=== PATIENT | male | born 1960 | race Caucasian/White ===

== ENCOUNTER 2019-05-19 10:27 | Emergency (ER) | payer BC ==
--- NOTE | 2019-05-19 11:21 | CR ---
Left elbow: 4 views left elbow were obtained. Comparison: No previous study. Soft tissue swelling is identified. No joint effusion is identified. Joint spaces are preserved. No acute fracture, dislocation or other bony abnormality is identified. Impression: 1. Soft tissue swelling. 2. No acute bony abnormality is identified on left elbow study. Diagnostic code #2 Study was dictated in MDT
--- NOTE | 2019-05-19 12:12 | EDM.PDOC ---
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 Feels warm to touch. He admits that he might of fallen on it about a week ago landing on his elbow and his left knee however. Or the slip and fall that occurred. Patient is left-hand dominant. Over the last day and a half however started to get more red tight and swollen. No numbness tingling. Did not have any neck pain or radicular pain. No strength deficit. His elbow range of motion is normal. Denies any wrist fingers or shoulder pain. No fevers chills or sweats no coughing or cold symptoms no muscle aches or pains. No red streaking, no open wounds.) Left Lower Arm Pain Score (Numeric/FACES): 2 - Related Data Allergies Allergy/AdvReac Type Severity Reaction Status Date / Time No Known Allergies Allergy Verified 05/19/19 10:39 MDT Home Meds: Home Meds cephALEXin [Keflex] 500 mg PO Q8H #30 cap 05/19/19 [Rx] Past Medical History Cardiovascular History: Reports: High Cholesterol, Hypertension Respiratory History: Reports: COPD Social & Family History - Tobacco Use Smoking Status *Q: Current Every Day Smoker Years of Tobacco use: 25 Packs/Tins Daily: 1 - Alcohol Use Days Per Week of Alcohol Use: 2 Number of Drinks Per Day: 7 Total Drinks Per Week: 14 - Recreational Drug Use Recreational Drug Use: No Review of Systems - Review of Systems Review Of Systems: See Below Constitutional: Denies: Chills, Diaphoresis, Fever Nose: Reports: No Symptoms Mouth/Throat: Reports: No Symptoms Respiratory: Reports: Cough. Denies: Shortness of Breath Cardiovascular: Reports: No Symptoms GI/Abdominal: Reports: No Symptoms. Denies: Nausea, Vomiting Musculoskeletal: Reports: Joint Swelling. Denies: Shoulder Pain, Arm Pain, Hand Pain, Joint Pain Skin: Reports: Rash, Erythema Neurological: Denies: Dizziness, Paresthesia, Tremors, Weakness Psychiatric: Reports: No Symptoms ED EXAM, GENERAL - Physical Exam Exam: See Below Exam Limited By: No Limitations General Appearance: Alert, WD/WN, No Apparent Distress. No: Mild Distress Respiratory/Chest: No Respiratory Distress, Lungs Clear Cardiovascular: Normal Peripheral Pulses, Regular Rate, Rhythm, No Murmur Peripheral Pulses: 2+: Radial (L), Radial (R) GI/Abdominal: Normal Bowel Sounds Back Exam: Normal Inspection Extremities: Normal Capillary Refill, Joint Swelling, Arm Pain, Increased Warmth (Upper extremity from the hand dorsal aspect up to the mid humerus is redness and warmth. There is no induration however there is no open wounds. 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 No point pinpoint tenderness noted. No bony tenderness to anatomical snuffbox carpal and range of motion of the wrist and elbow are somewhat diminished secondary to more swelling than any pain as he denies any pain. No axillary adenopathy no red streaking, shoulder within normal limits neck is unremarkable for any pain or range of motion deficit.). No: Slow Capillary Refill Course - Vital Signs Last Recorded V/S: Last Vital Signs Temp 98.2 F 05/19/19 10:34 MDT Pulse 84 05/19/19 10:34 MDT Resp 16 05/19/19 10:34 MDT BP 123/89 05/19/19 10:34 MDT Pulse Ox 95 05/19/19 10:34 MDT - Orders/Labs/Meds Orders: Active Orders 24 hr Category Date Time Status DME for Discharge [COMM] Routine Oth 05/19/19 12:17 Ordered Labs: Laboratory Tests 05/19/19 05/19/19 Range/Units 11:13 MDT 11:13 MDT WBC 8.80 (4.23-9.07) K/mm3 RBC 4.92 (4.63-6.08) M/mm3 Hgb 15.1 (13.7-17.5) gm/dl Hct 45.1 (40.1-51.0) % MCV 91.7 (79.0-92.2) fl MCH 30.7 (25.7-32.2) pg MCHC 33.5 (32.2-35.5) g/dl RDW Std Deviation 42.9 (35.1-43.9) fL Plt Count 246 (163-337) K/mm3 MPV 9.1 L (9.4-12.3) fl Neut % (Auto) 59.4 (34.0-67.9) % Lymph % (Auto) 26.6 (21.8-53.1) % [place] % (Auto) 10.5 (5.3-12.2) % Eos % (Auto) 2.8 (0.8-7.0) Baso % (Auto) 0.6 (0.1-1.2) % Neut # (Auto) 5.23 (1.78-5.38) K/mm3 Lymph # (Auto) 2.34 (1.32-3.57) K/mm3 [place] # (Auto) 0.92 H (0.30-0.82) K/mm3 Eos # (Auto) 0.25 (0.04-0.54) K/mm3 Baso # (Auto) 0.05 (0.01-0.08) K/mm3 Sodium 140 (136-145) mEq/L Potassium 4.0 (3.5-5.1) mEq/L Chloride 100 (98-107) mEq/L Carbon Dioxide 29 (21-32) mEq/L Anion Gap 15.0 (5-15) BUN 9 (7-18) mg/dL Creatinine 0.6 L (0.7-1.3) mg/dL Est Cr Clr Drug Dosing 154.13 mL/min Estimated GFR (MDRD) > 60 (>60) mL/min BUN/Creatinine Ratio 15.0 (14-18) Glucose 80 (74-106) mg/dL Calcium 9.4 (8.5-10.1) mg/dL C-Reactive Protein 3.3 H* (<1.0) mg/dL - Radiology Interpretation Free Text/Narrative:: X-ray of the left elbow show some mild soft tissue swelling, no fracture dislocation, fat pad sign is negative. - Re-Assessments/Exams Free Text/Narrative Re-Assessment/Exam: 05/19/19 12:11 Preliminary ultrasound left upper extremity negative for DVT. White count is normal, CRP minimally elevated, creatinine is normal. Initially suspect could be fracture rule out DVT, cellulitis, lymphoma, and thoracic outlet, subclavian steal is unlikely. With lab results and x-ray along with negative ultrasound will treat with antibiotics, Keflex 500 mg 3 times a day for 7 days, warm moist heat elevate rest, follow-up and return precautions given. Departure - Departure Time of Disposition: 16:05 Disposition: Home, Self-Care 01 Condition: Good Clinical Impression: Cellulitis of arm, left - Discharge Information Prescriptions: cephALEXin [Keflex] 500 mg PO Q8H #30 cap Instructions: Cellulitis, Adult Referrals: Too Burkett MD [Primary Care Provider] - Forms: ED Department Discharge Additional Instructions: Rest, elevate, warm moist heat, take antibiotics as directed. Monitor for any increasing warmth redness swelling, fevers, myalgias. Follow-up with your primary care in the next 2 days for recheck evaluation to make sure it is improving. Return to emergency department however for any increasing swelling redness pain fevers red streaking, worse. Sepsis Event Note - Evaluation Sepsis Screening Result: No Definite Risk - Focused Exam Vital Signs: Vital Signs Temp Pulse Resp BP Pulse Ox 05/19/19 10:34 MDT 98.2 F 84 16 123/89 95 Date Exam was Performed: 05/19/19 Time Exam was Performed: 17:05
--- NOTE | 2019-05-19 12:23 | US ---
Left upper extremity venous ultrasound: Duplex and color Doppler evaluation was obtained of the left internal jugular, left subclavian, left axillary, left brachial, left basilic, left cephalic, left radial and left ulnar veins. Findings: Normal compression, phasic flow and augmentation is seen. Subcutaneous edema is noted within the forearm. Impression: 1. Subcutaneous edema as noted above. 2. No venous thrombosis is seen within the left upper extremity. Diagnostic code #2 Study was dictated in MDT
== END 2019-05-19 12:26 | disposition home or self-care (01) ==
LOC: JD.ED 10:27
DX: L03.114 Cellulitis of left upper limb (principal); J44.9 Chronic obstructive pulmonary disease, unspecified; I10 Essential (primary) hypertension; F17.210 Nicotine dependence, cigarettes, uncomplicated
CPT/HCPCS: 36415; 73080-26-LT; 73080-LT; 80048; 85025; 86140; 93971-26-LT; 93971-LT; 99283; 99284-25

== ENCOUNTER 2020-02-10 08:49 | Inpatient (IN) | payer BC ==
[2020-02-10] MEDS ORDERED: Sodium Chloride 0.9% 10 ML Syringe FLUSH PRN (09:37)
--- NOTE | 2020-02-10 10:04 | EDM.PDOC ---
ED HPI GENERAL MEDICAL PROBLEM - General Chief Complaint: Respiratory Problem Stated Complaint: COUGH/FATIGUE Time Seen by Provider: 02/10/20 09:09 Source of Information: Reports: Patient History Limitations: Reports: No Limitations - History of Present Illness INITIAL COMMENTS - FREE TEXT/NARRATIVE: 59-year-old male presents to the emergency department with complaints of incre ased shortness of breath and chest congestion. Patient states this has been ongoing for the past couple of weeks however today he feels more short of breath. States his primary care provider Kari Mitchell, recently started him on a diuretic which he believes is Lasix 20 mg daily. He states he does not note any improvement since being started on that over the course of the last couple of weeks. He also states he has been treated on a couple of rounds of antibiotics for pneumonia. Denies increased cough states he feels like he is unable to get the mucus out. States that over the course of the last couple of weeks he has had an increased need for oxygen. Prior to this he only wore oxygen at nighttime however he is now wearing it 24/7 at 5 L per nasal cannula. He denies fever or chills. Also denies any swelling to his feet or ankles. Distant denies orthopnea. 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 - Related Data Allergies Allergy/AdvReac Type Severity Reaction Status Date / Time No Known Allergies Allergy Verified 02/10/20 09:09 Home Meds: Home Meds Albuterol Sulfate [Albuterol Sulfate Hfa] 2 inh IH Q4H PRN 02/10/20 [History] Budesonide/Formoterol Fumarate [Symbicort 160-4.5 Mcg Inhaler] 2 inh IH BID 02/10/20 [History] Fluticasone Furoate [Arnuity Ellipta] 2 inh ROSIE DAILY 02/10/20 [History] Furosemide 20 mg PO DAILY 02/10/20 [History] Ipratropium/Albuterol Sulfate [Iprat-Albut 0.5-3(2.5) mg/3 ml] 3 ml IH Q6HR 02/10/20 [History] Omeprazole 40 mg PO DAILY 02/10/20 [History] Quinapril [Accupril] 10 mg PO DAILY 02/10/20 [History] amLODIPine [Norvasc] 5 mg PO DAILY 02/10/20 [History] atorvaSTATin [Lipitor] 10 mg PO BEDTIME 02/10/20 [History] predniSONE [Prednisone] 10 mg PO BID 02/10/20 [History] Past Medical History Cardiovascular History: Reports: High Cholesterol, Hypertension Respiratory History: Reports: COPD Social & Family History - Tobacco Use Tobacco Use Status *Q: Former Tobacco User Years of Tobacco use: 40 Packs/Tins Daily: 1 Used Tobacco, but Quit: Yes Month/Year Tobacco Last Used: August 2019 - Caffeine Use Caffeine Use: Reports: Coffee - Recreational Drug Use Recreational Drug Use: No ED ROS GENERAL - Review of Systems Review Of Systems: See Below Constitutional: Reports: No Symptoms. Denies: Fever, Chills, Diaphoresis HEENT: Reports: No Symptoms Respiratory: Reports: Shortness of Breath, Cough. Denies: Wheezing, Pleuritic Chest Pain, Sputum Cardiovascular: Reports: Dyspnea on Exertion. Denies: Chest Pain, Edema, Palpitations Endocrine: Reports: No Symptoms GI/Abdominal: Reports: No Symptoms. Denies: Abdominal Pain, Nausea, Vomiting Skin: Reports: No Symptoms Neurological: Reports: No Symptoms Psychiatric: Reports: No Symptoms Hematologic/Lymphatic: Reports: No Symptoms Immunologic: Reports: No Symptoms ED EXAM, GENERAL - Physical Exam Exam: See Below Exam Limited By: No Limitations General Appearance: Alert, WD/WN, No Apparent Distress Eye Exam: Bilateral Eye: PERRL Ears: Hearing Grossly Normal Nose: Normal Inspection Throat/Mouth: Normal Voice, No Airway Compromise Head: Atraumatic, Normocephalic Neck: Normal Inspection, Supple, Non-Tender, Full Range of Motion Respiratory/Chest: No Respiratory Distress, Chest Non-Tender, Decreased Breath Sounds, Crackles (Left upper lobe posteriorly). No: Lungs Clear, Normal Breath Sounds, No Accessory Muscle Use Cardiovascular: Normal Peripheral Pulses, Regular Rate, Rhythm, No Edema, No Murmur Peripheral Pulses: 2+: Radial (L), Radial (R), Dorsalis Pedis (L), Dorsalis Pedis (R) GI/Abdominal: Normal Bowel Sounds, Soft, Non-Tender, No Distention (Male) Exam: Deferred Rectal (Males) Exam: Deferred Back Exam: Normal Inspection, Full Range of Motion Extremities: Normal Inspection, Normal Range of Motion, Non-Tender, No Pedal Edema, Normal Capillary Refill Neurological: Alert, Oriented, Normal Cognition Psychiatric: Normal Affect, Normal Mood Skin Exam: Warm, Dry, Intact, Normal Color, No Rash Lymphatic: No Adenopathy #1 Interpretation EKG Date: 02/10/20 Time: 09:18 Rhythm: NSR Rate (Beats/Min): 99 [place]: Normal P-Wave: Present QRS: Normal ST-T: Normal Comparison: NA - No Prior EKG EKG Interpretation Comments: Per Dr. Corrigan interpretation: Sinus tachycardia, probable left atrial enlargement, minimal ST elevation, lateral leads, baseline wander in lead (s) V1, V2 Course - Vital Signs Text/Narrative:: I have ordered a CBC, CMP, magnesium, C-reactive protein, proBNP, EKG, and a chest x-ray on this patient. Last Recorded V/S: Last Vital Signs Temp 98.0 F 02/10/20 09:10 Pulse 120 H 02/10/20 13:00 Resp 18 02/10/20 13:00 BP 117/85 02/10/20 13:00 Pulse Ox 94 L 02/10/20 13:00 - Orders/Labs/Meds Orders: Active Orders 24 hr Category Date Time Status EKG 12 Lead [EKG Documentation Completion] [RC] ROUTINE Care 02/10/20 09:18 Active Chest 1V Frontal [CR] Stat Exams 02/10/20 09:37 Taken Sodium Chloride 0.9% [Saline Flush] Med 02/10/20 09:37 Active 10 ml FLUSH ASDIRECTED PRN Saline Lock Insert [OM.PC] Stat Oth 02/10/20 09:37 Ordered Medication Orders Sodium Chloride (Saline Flush) 10 ml FLUSH ASDIRECTED PRN PRN Reason: Keep Vein Open Last Admin: 02/10/20 09:46 Dose: 10 ml Documented by: CHASITY Labs: Laboratory Tests 02/10/20 02/10/20 02/10/20 Range/Units 09:15 09:15 09:15 WBC 10.16 H (4.23-9.07) K/mm3 RBC 5.13 (4.63-6.08) M/mm3 Hgb 15.2 (13.7-17.5) gm/dl Hct 48.3 (40.1-51.0) % MCV 94.2 H (79.0-92.2) fl MCH 29.6 (25.7-32.2) pg MCHC 31.5 L (32.2-35.5) g/dl RDW Std Deviation 43.9 (35.1-43.9) fL Plt Count 219 (163-337) K/mm3 MPV 9.5 (9.4-12.3) fl Neut % (Auto) 80.2 H (34.0-67.9) % Lymph % (Auto) 10.5 L (21.8-53.1) % [place] % (Auto) 7.8 (5.3-12.2) % Eos % (Auto) 1.0 (0.8-7.0) Baso % (Auto) 0.2 (0.1-1.2) % Neut # (Auto) 8.15 H (1.78-5.38) K/mm3 Lymph # (Auto) 1.07 L (1.32-3.57) K/mm3 [place] # (Auto) 0.79 (0.30-0.82) K/mm3 Eos # (Auto) 0.10 (0.04-0.54) K/mm3 Baso # (Auto) 0.02 (0.01-0.08) K/mm3 Manual Slide Review Normal smear D-Dimer, Quantitative (0.19-0.50) mg/L Puncture Site ABG pH (7.35-7.45) ABG pCO2 (35.0-45.0) mmHg ABG pO2 (80.0-100.0) mmHg ABG HCO3 (22.0-26.0) meq/L ABG O2 Saturation (96.0-97.0) % ABG Base Excess (-2-2.0) Cameron Test O2 Delivery Device Oxygen Flow Rate FiO2 (21.00-100.00) % Sodium 133 L (136-145) mEq/L Potassium 3.9 (3.5-5.1) mEq/L Chloride 91 L (98-107) mEq/L Carbon Dioxide 38 H (21-32) mEq/L Anion Gap 7.9 (5-15) BUN 8 (7-18) mg/dL Creatinine 0.7 (0.7-1.3) mg/dL Est Cr Clr Drug Dosing 132.11 mL/min Estimated GFR (MDRD) > 60 (>60) mL/min BUN/Creatinine Ratio 11.4 L (14-18) Glucose 124 H (74-106) mg/dL Calcium 9.0 (8.5-10.1) mg/dL Magnesium 1.9 (1.8-2.4) mg/dl Total Bilirubin 0.5 (0.2-1.0) mg/dL AST 23 (15-37) U/L ALT 23 (16-63) U/L Alkaline Phosphatase 70 (46-116) U/L Troponin I < 0.017 (0.00-0.056) ng/mL C-Reactive Protein < 0.2 (<1.0) mg/dL NT-Pro-B Natriuret Pep 73 (0-125) pg/mL Total Protein 7.1 (6.4-8.2) g/dl Albumin 3.7 (3.4-5.0) g/dl Globulin 3.4 gm/dL Albumin/Globulin Ratio 1.1 (1-2) SARS-CoV-2 RNA (SHANNEN) (NEGATIVE) 02/10/20 02/10/20 02/10/20 Range/Units 09:15 10:32 12:15 WBC (4.23-9.07) K/mm3 RBC (4.63-6.08) M/mm3 Hgb (13.7-17.5) gm/dl Hct (40.1-51.0) % MCV (79.0-92.2) fl MCH (25.7-32.2) pg MCHC (32.2-35.5) g/dl RDW Std Deviation (35.1-43.9) fL Plt Count (163-337) K/mm3 MPV (9.4-12.3) fl Neut % (Auto) (34.0-67.9) % Lymph % (Auto) (21.8-53.1) % [place] % (Auto) (5.3-12.2) % Eos % (Auto) (0.8-7.0) Baso % (Auto) (0.1-1.2) % Neut # (Auto) (1.78-5.38) K/mm3 Lymph # (Auto) (1.32-3.57) K/mm3 [place] # (Auto) (0.30-0.82) K/mm3 Eos # (Auto) (0.04-0.54) K/mm3 Baso # (Auto) (0.01-0.08) K/mm3 Manual Slide Review D-Dimer, Quantitative 0.23 (0.19-0.50) mg/L Puncture Site Rt radial ABG pH 7.37 (7.35-7.45) ABG pCO2 73.7 H* (35.0-45.0) mmHg ABG pO2 65.0 L (80.0-100.0) mmHg ABG HCO3 41.1 H (22.0-26.0) meq/L ABG O2 Saturation 91.6 L (96.0-97.0) % ABG Base Excess 12.0 H (-2-2.0) Cameron Test Positive O2 Delivery Device Nasal cannula Oxygen Flow Rate 2.5 FiO2 0.00 L (21.00-100.00) % Sodium (136-145) mEq/L Potassium (3.5-5.1) mEq/L Chloride (98-107) mEq/L Carbon Dioxide (21-32) mEq/L Anion Gap (5-15) BUN (7-18) mg/dL Creatinine (0.7-1.3) mg/dL Est Cr Clr Drug Dosing mL/min Estimated GFR (MDRD) (>60) mL/min BUN/Creatinine Ratio (14-18) Glucose (74-106) mg/dL Calcium (8.5-10.1) mg/dL Magnesium (1.8-2.4) mg/dl Total Bilirubin (0.2-1.0) mg/dL AST (15-37) U/L ALT (16-63) U/L Alkaline Phosphatase (46-116) U/L Troponin I (0.00-0.056) ng/mL C-Reactive Protein (<1.0) mg/dL NT-Pro-B Natriuret Pep (0-125) pg/mL Total Protein (6.4-8.2) g/dl Albumin (3.4-5.0) g/dl Globulin gm/dL Albumin/Globulin Ratio (1-2) SARS-CoV-2 RNA (SHANNEN) Negative (NEGATIVE) Meds: Medications Generic Name Dose Route Start Last Admin Trade Name Freq PRN Reason Stop Dose Admin Sodium Chloride 10 ml 02/10/20 09:37 02/10/20 09:46 Saline Flush FLUSH 10 ml ASDIRECTED PRN Administration Keep Vein Open - Re-Assessments/Exams Free Text/Narrative Re-Assessment/Exam: 02/10/20 10:37 Labs reveal WBC 10.16, neutrophil percentage 80.2, sodium 133, chloride 91, and carbon dioxide 38, magnesium 1.9, troponin less than 0.017, C-reactive protein less than 0.02, proBNP 73. With patient having a history of COPD and now increasing to oxygen at 5 L per nasal cannula during the day I have ordered ABGs. 02/10/20 11:32 ABGs reveal pH 7.37, PCO2 73.7, PO2 65.0, bicarb 41.1, O2 saturations 91.6% on 2-1/2 L of oxygen per nasal cannula. Pt is requesting to go home, however I believe he needs to be admitted for COPD exacerbation. Pt is agreeable after a lengthy discussion. Dr. Turpin has agreed to admit the patient under his care. 02/10/20 12:18 Stated with nursing staff and wanting to leave AGAINST MEDICAL ADVICE. Patient pulled out his own IV. Patient then spoke to his on the phone and is agreeable and wanting to stay and be admitted to the hospital now. Nursing staff will reinsert patient's saline lock. Departure - Departure Time of Disposition: 13:13 Disposition: DC/Tfer to Critical Access 66 Condition: Fair Clinical Impression: COPD exacerbation - Discharge Information Referrals: Matilda Mitchell NP [Primary Care Provider] - Forms: ED Department Discharge Sepsis Event Note (ED) - Evaluation Sepsis Screening Result: No Definite Risk - Focused Exam Vital Signs: Vital Signs Temp Pulse Resp BP Pulse Ox 02/10/20 13:00 120 H 18 117/85 94 L 02/10/20 09:10 98.0 F 102 H 18 143/78 H 82 L - My Orders Last 24 Hours: My Active Orders 02/10/20 09:18 EKG 12 Lead [EKG Documentation Completion] [RC] ROUTINE 02/10/20 09:37 Chest 1V Frontal [CR] Stat Sodium Chloride 0.9% [Saline Flush] 10 ml FLUSH ASDIRECTED PRN Saline Lock Insert [OM.PC] Stat - Assessment/Plan Last 24 Hours: My Active Orders 02/10/20 09:18 EKG 12 Lead [EKG Documentation Completion] [RC] ROUTINE 02/10/20 09:37 Chest 1V Frontal [CR] Stat Sodium Chloride 0.9% [Saline Flush] 10 ml FLUSH ASDIRECTED PRN Saline Lock Insert [OM.PC] Stat
--- NOTE | 2020-02-10 13:35 | PCM.HP.2 ---
H&P History of Present Illness - General Date of Service: 02/10/20 Admit Problem/Dx: Admission Diagnosis/Problem Admission Diagnosis/Problem Chronic obstructive pulmonary disease Source of Information: Patient, Old Records, Provider, RN, RN Notes Reviewed History Limitations: Reports: No Limitations - History of Present Illness Initial Comments - Free Text/Narative: This is a 59-year-old male who presents to ED on 02/10/2020 with increased shortness of breath and chest congestion. He states he has had cough and fatigue for several days however today he feels worse. He was recently started on a diuretic by his primary care provider and old records show that it is Lasix 20 mg daily. He has seen no improvement with this medication. Reports he has been on several rounds of antibiotics for pneumonia. Reports a cough that is dry he is on home oxygen and has noticed an increased need. He states that he wear oxygen at nighttime only prior and now he is wearing it all the time at 5 L. Denies fever chills, swelling to feet or ankles, orthopnea, or other infectious symptoms. Reports he was tested for Covid about a week ago and was negative and that his is frequently tested due to her employment. In the ED twelve-lead EKG is obtained showing a sinus rhythm at 99 bpm. There is probable left atrial enlargement with minimal ST elevation in the lateral leads and baseline wander in leads V1 and V2. Is 98 F. Pulse 120. Respirations 18. Blood pressure 117/85. Pulse ox 94%. Labs are obtained showing minimal leukocytosis at 10.16. Hemoglobin 15.2. Hematocrit 40.3. He is macrocytic. Platelets are good at 219,000. Neutrophils are elevated at 0.15. Sodium is slightly low at 133. Potassium 3.9. Chloride 91. Carbon dioxide is 38. Anion gap is 7.9. BUN is 8. Creatinine 0.7. GFR is greater than 60. Glucose is 124. Calcium 9.0. Magnesium 1.9. Bilirubin 0.5. AST 23, ALT 23, alkaline phosphatase 70. Troponin is less than 0.017. CRP is less than 0.2. proBNP is 73. Protein is 7.1. Albumin 3.7. D-dimer 0.23. ABG is obtained in the right radial showing a pH of 7.37. PCO2 of 73.7. PO2 of 65. HCO3 of 41.1. O2 saturation 91.6. Base excess is 12.0. This is while on 2.5 L via nasal cannula. SARS-CoV-2 RNA is negative. Patient initially was adamant about leaving and asked to check out AMA. He pulled out his own IV but after discussion with his he agreed to stay. He carries a history of HLD, HTN, COPD, prior tobacco use and that he stopped in August 2019. He subsequently admitted to the medical floor for treatment of his COPD exacerbation. He is a full code. His PCP is Enoch Mitchell NP. He recently underwent surgery to remove a mass in his throat resulting in hoarse voice. - Related Data Allergies/Adverse Reactions: Allergies Allergy/AdvReac Type Severity Reaction Status Date / Time No Known Allergies Allergy Verified 02/10/20 09:09 Home Medications: Home Meds Albuterol Sulfate [Albuterol Sulfate Hfa] 2 inh IH Q4H PRN 02/10/20 [History] Budesonide/Formoterol Fumarate [Symbicort 160-4.5 Mcg Inhaler] 2 inh IH BID 02/10/20 [History] Fluticasone Furoate [Arnuity Ellipta] 2 inh ROSIE DAILY 02/10/20 [History] Furosemide 20 mg PO DAILY 02/10/20 [History] Ipratropium/Albuterol Sulfate [Iprat-Albut 0.5-3(2.5) mg/3 ml] 3 ml IH Q6HR 02/10/20 [History] Omeprazole 40 mg PO DAILY 02/10/20 [History] Quinapril [Accupril] 10 mg PO DAILY 02/10/20 [History] amLODIPine [Norvasc] 5 mg PO DAILY 02/10/20 [History] atorvaSTATin [Lipitor] 10 mg PO BEDTIME 02/10/20 [History] predniSONE [Prednisone] 10 mg PO BID 02/10/20 [History] Past Medical History Cardiovascular History: Reports: High Cholesterol, Hypertension Respiratory History: Reports: COPD Social & Family History - Tobacco Use Tobacco Use Status *Q: Former Tobacco User Years of Tobacco use: 40 Packs/Tins Daily: 1 Used Tobacco, but Quit: Yes Month/Year Tobacco Last Used: August 2019 - Caffeine Use Caffeine Use: Reports: Coffee - Recreational Drug Use Recreational Drug Use: No H&P Review of Systems - Review of Systems: Review Of Systems: See Below General: Reports: No Symptoms. Denies: Fever, Chills, Malaise, Weakness, Fatigue, Diaphoresis HEENT: Reports: No Symptoms, Other (Hoarse voice 2/2 throat surgery removing benign tumor). Denies: Headaches, Sore Throat Pulmonary: Reports: Shortness of Breath, Cough. Denies: Wheezing, Pleuritic Chest Pain, Sputum Cardiovascular: Reports: No Symptoms, Dyspnea on Exertion. Denies: Chest Pain, Palpitations, Edema Gastrointestinal: Reports: No Symptoms. Denies: Abdominal Pain, Constipation, Diarrhea, Nausea, Vomiting Genitourinary: Reports: No Symptoms. Denies: Pain Musculoskeletal: Reports: No Symptoms Skin: Reports: No Symptoms. Denies: Cyanosis Psychiatric: Reports: No Symptoms. Denies: Confusion Neurological: Reports: No Symptoms. Denies: Pre-Existing Deficit, Trouble Speaking, Difficulty Walking, Gait Disturbance Hematologic/Lymphatic: Reports: No Symptoms. Denies: Anemia Immunologic: Reports: No Symptoms Exam - Exam Exam: See Below - Vital Signs Vital Signs: Last Vital Signs Temp 98.0 F 02/10/20 09:10 Pulse 120 H 02/10/20 13:00 Resp 18 02/10/20 13:00 BP 117/85 02/10/20 13:00 Pulse Ox 94 L 02/10/20 13:00 Weight: 244 lb - Exam Quality Assessment: Supplemental Oxygen (2L ), DVT Prophylaxis General: Alert, Oriented, Cooperative. No: Mild Distress HEENT: Conjunctiva Clear, Mucosa Moist & [place], Posterior Pharynx Clear Neck: Supple, Trachea Midline Lungs: Normal Respiratory Effort, Decreased Breath Sounds, Crackles, Rhonchi, W heezing Cardiovascular: Regular Rate, Regular Rhythm GI/Abdominal Exam: Normal Bowel Sounds, Soft, Non-Tender, No Distention, Hernia (Male) Exam: Deferred Rectal (Males) Exam: Deferred Back Exam: Normal Inspection, Full Range of Motion Extremities: Normal Inspection, Normal Range of Motion, Non-Tender, Normal Capillary Refill, Pedal Edema (Right = trace to 1+; Left =2+) Skin: Warm, Dry, Intact Neurological: Cranial Nerves Intact (Grossly ) Neuro Extensive - Mental Status: Alert, Oriented x3, Normal Mood/Affect - Patient Data Lab Results Last 24 hrs: Laboratory Results - last 24 hr 02/10/20 02/10/2002/09/21 Range/Units 09:15 09:15 09:15 WBC 10.16 H (4.23-9.07) K/mm3 RBC 5.13 (4.63-6.08) M/mm3 Hgb 15.2 (13.7-17.5) gm/dl Hct 48.3 (40.1-51.0) % MCV 94.2 H (79.0-92.2) fl MCH 29.6 (25.7-32.2) pg MCHC 31.5 L (32.2-35.5) g/dl RDW Std Deviation 43.9 (35.1-43.9) fL Plt Count 219 (163-337) K/mm3 MPV 9.5 (9.4-12.3) fl Neut % (Auto) 80.2 H (34.0-67.9) % Lymph % (Auto) 10.5 L (21.8-53.1) % [place] % (Auto) 7.8 (5.3-12.2) % Eos % (Auto) 1.0 (0.8-7.0) Baso % (Auto) 0.2 (0.1-1.2) % Neut # (Auto) 8.15 H (1.78-5.38) K/mm3 Lymph # (Auto) 1.07 L (1.32-3.57) K/mm3 [place] # (Auto) 0.79 (0.30-0.82) K/mm3 Eos # (Auto) 0.10 (0.04-0.54) K/mm3 Baso # (Auto) 0.02 (0.01-0.08) K/mm3 Manual Slide Review Normal smear D-Dimer, Quantitative (0.19-0.50) mg/L Puncture Site ABG pH (7.35-7.45) ABG pCO2 (35.0-45.0) mmHg ABG pO2 (80.0-100.0) mmHg ABG HCO3 (22.0-26.0) meq/L ABG O2 Saturation (96.0-97.0) % ABG Base Excess (-2-2.0) Cameron Test O2 Delivery Device Oxygen Flow Rate FiO2 (21.00-100.00) % Sodium 133 L (136-145) mEq/L Potassium 3.9 (3.5-5.1) mEq/L Chloride 91 L (98-107) mEq/L Carbon Dioxide 38 H (21-32) mEq/L Anion Gap 7.9 (5-15) BUN 8 (7-18) mg/dL Creatinine 0.7 (0.7-1.3) mg/dL Est Cr Clr Drug Dosing 132.11 mL/min Estimated GFR (MDRD) > 60 (>60) mL/min BUN/Creatinine Ratio 11.4 L (14-18) Glucose 124 H (74-106) mg/dL Calcium 9.0 (8.5-10.1) mg/dL Magnesium 1.9 (1.8-2.4) mg/dl Total Bilirubin 0.5 (0.2-1.0) mg/dL AST 23 (15-37) U/L ALT 23 (16-63) U/L Alkaline Phosphatase 70 (46-116) U/L Troponin I < 0.017 (0.00-0.056) ng/mL C-Reactive Protein < 0.2 (<1.0) mg/dL NT-Pro-B Natriuret Pep 73 (0-125) pg/mL Total Protein 7.1 (6.4-8.2) g/dl Albumin 3.7 (3.4-5.0) g/dl Globulin 3.4 gm/dL Albumin/Globulin Ratio 1.1 (1-2) SARS-CoV-2 RNA (SHANNEN) (NEGATIVE) 02/10/20 02/10/20 02/10/20 Range/Units 09:15 10:32 12:15 WBC (4.23-9.07) K/mm3 RBC (4.63-6.08) M/mm3 Hgb (13.7-17.5) gm/dl Hct (40.1-51.0) % MCV (79.0-92.2) fl MCH (25.7-32.2) pg MCHC (32.2-35.5) g/dl RDW Std Deviation (35.1-43.9) fL Plt Count (163-337) K/mm3 MPV (9.4-12.3) fl Neut % (Auto) (34.0-67.9) % Lymph % (Auto) (21.8-53.1) % [place] % (Auto) (5.3-12.2) % Eos % (Auto) (0.8-7.0) Baso % (Auto) (0.1-1.2) % Neut # (Auto) (1.78-5.38) K/mm3 Lymph # (Auto) (1.32-3.57) K/mm3 [place] # (Auto) (0.30-0.82) K/mm3 Eos # (Auto) (0.04-0.54) K/mm3 Baso # (Auto) (0.01-0.08) K/mm3 Manual Slide Review D-Dimer, Quantitative 0.23 (0.19-0.50) mg/L Puncture Site Rt radial ABG pH 7.37 (7.35-7.45) ABG pCO2 73.7 H* (35.0-45.0) mmHg ABG pO2 65.0 L (80.0-100.0) mmHg ABG HCO3 41.1 H (22.0-26.0) meq/L ABG O2 Saturation 91.6 L (96.0-97.0) % ABG Base Excess 12.0 H (-2-2.0) Cameron Test Positive O2 Delivery Device Nasal cannula Oxygen Flow Rate 2.5 FiO2 0.00 L (21.00-100.00) % Sodium (136-145) mEq/L Potassium (3.5-5.1) mEq/L Chloride (98-107) mEq/L Carbon Dioxide (21-32) mEq/L Anion Gap (5-15) BUN (7-18) mg/dL Creatinine (0.7-1.3) mg/dL Est Cr Clr Drug Dosing mL/min Estimated GFR (MDRD) (>60) mL/min BUN/Creatinine Ratio (14-18) Glucose (74-106) mg/dL Calcium (8.5-10.1) mg/dL Magnesium (1.8-2.4) mg/dl Total Bilirubin (0.2-1.0) mg/dL AST (15-37) U/L ALT (16-63) U/L Alkaline Phosphatase (46-116) U/L Troponin I (0.00-0.056) ng/mL C-Reactive Protein (<1.0) mg/dL NT-Pro-B Natriuret Pep (0-125) pg/mL Total Protein (6.4-8.2) g/dl Albumin (3.4-5.0) g/dl Globulin gm/dL Albumin/Globulin Ratio (1-2) SARS-CoV-2 RNA (SHANNEN) Negative (NEGATIVE) Result Diagrams: 02/10/20 09:15 02/10/20 09:15 Sepsis Event Note - Evaluation Sepsis Screening Result: No Definite Risk - Focused Exam Vital Signs: Vital Signs Temp Pulse Resp BP Pulse Ox 02/10/20 13:00 120 H 18 117/85 94 L 02/10/20 09:10 98.0 F 102 H 18 143/78 H 82 L - Problem List (1) COPD exacerbation SNOMED Code(s): 474584855 ICD Code: J44.1 - CHRONIC OBSTRUCTIVE PULMONARY DISEASE W (ACUTE) EXACERBATION Status: Acute Priority: High Current Visit: Yes (2) HTN (hypertension) SNOMED Code(s): 03665442 ICD Code: I10 - ESSENTIAL (PRIMARY) HYPERTENSION Status: Chronic Prio rity: Medium Current Visit: No Qualifiers: Hypertension type: unspecified Qualified Code(s): I10 - Essential (primary) hypertension (3) HLD (hyperlipidemia) SNOMED Code(s): 42948269 ICD Code: E78.5 - HYPERLIPIDEMIA, UNSPECIFIED Status: Chronic Priority: Low Current Visit: No Qualifiers: Hyperlipidemia type: unspecified Qualified Code(s): E78.5 - Hyperlipidemia, unspecified (4) COPD (chronic obstructive pulmonary disease) SNOMED Code(s): 59366841 ICD Code: J44.9 - CHRONIC OBSTRUCTIVE PULMONARY DISEASE, UNSPECIFIED Status: Acute Priority: High Current Visit: Yes Qualifiers: COPD type: unspecified COPD Qualified Code(s): J44.9 - Chronic obstructive pulmonary disease, unspecified (5) Former smoker SNOMED Code(s): 7317167 ICD Code: Z87.891 - PERSONAL HISTORY OF NICOTINE DEPENDENCE Status: Chronic Priority: Low Current Visit: No (6) Oxygen dependent SNOMED Code(s): 215363582110 ICD Code: Z99.81 - DEPENDENCE ON SUPPLEMENTAL OXYGEN Status: Chronic Priority: Medium Current Visit: Yes (7) Hypomagnesemia SNOMED Code(s): 489174091 ICD Code: E83.42 - HYPOMAGNESEMIA Status: Acute Priority: High Current Visit: Yes (8) Hyperchloremia SNOMED Code(s): 13903670 ICD Code: E87.8 - OTH DISORDERS OF ELECTROLYTE AND FLUID BALANCE, NEC Status: Acute Priority: High Current Visit: Yes (9) Metabolic alkalosis with respiratory acidosis SNOMED Code(s): 555539991 ICD Code: E87.4 - MIXED DISORDER OF ACID-BASE BALANCE Status: Acute Priority: High Current Visit: Yes Problem List Initiated/Reviewed/Updated: Yes Orders Last 24hrs: Active Orders 24 hr Category Date Time Status Patient Status [ADT] Routine ADT 02/10/20 13:09 Active EKG 12 Lead [EKG Documentation Completion] [RC] ROUTINE Care 02/10/20 09:18 Active Chest 1V Frontal [CR] Stat Exams 02/10/20 09:37 Taken Sodium Chloride 0.9% [Saline Flush] Med 02/10/20 09:37 Active 10 ml FLUSH ASDIRECTED PRN Saline Lock Insert [OM.PC] Stat Oth 02/10/20 09:37 Ordered Medication Orders Sodium Chloride (Saline Flush) 10 ml FLUSH ASDIRECTED PRN PRN Reason: Keep Vein Open Last Admin: 02/10/20 09:46 Dose: 10 ml Documented by: CHASITY Assessment/Plan Comment:: Assessment - day of admission 02/10/2020 * 59 yo male who presents to our ED with increased SOB, cough, fatigue, and chest congestion * Reports he was recently started on 20mg lasix with no improvement * Denies any orthopnea or edema * Was wearing oxygen only at night but now up to 5L at all times * Reports negative COVID-19 test about a week ago * Hx of COPD, HTN, HLD, and former smoker * 12-Lead EKG in ED: NSR with probable left atrial enlargement, minimal ST elevation in lateral leads, baseline wander in V1-V2\ * Wears home CPAP at night * CXR in ED shows nothing acute - formal read pending * Labs in ED: * WBC 10.16 * Hgb 15.2 * PLT 219 * Neutrophils 8.15 * Sodium 133 * Potassium 3.9 * Chloride 91 * Carbon Dioxide 38 * Anion gap 7.9 * GFR >60 * Magnesium 1.9 * Total bilirubin 0.5 * AST23, ALT 23, Alp phos 70 * Troponin I <0.017 * CRP <0.2 * Pro-BNP 73 * Protein 7.1 * Albumin 3.7 * D-Dimer 0.23 * ABG: pH 7.37, PCO2 73.7, PO2 65.0, HCO3 41.1, O2 saturation 91.6, base excess 12.0. * SARS-CoV-2 RNA negative * Reports last PFT was 15 years ago * Reports recently underwent throat surgery to remove a benign mass resulting in hoarseness of voice. PLAN: COPD exacerbation Metabolic alkalosis with respiratory acidosis Hyperchloremia COPD (chronic obstructive pulmonary disease) Former smoker Oxygen dependant * PRN duonebs * Start 500mg PO Azithromycin * O2 as need with saturation goal of 88-94% * Consult RT * Dulera (substitute for home Symbicort) * Steroids as ordered * IV fluids as ordered * IS/Acapella * Hold home Lasix * Sputum culture * Scheduled Robitussin DM * PRN Tessalon Perles * Recommend PFT at discharge Hypomagnesemia * Supplement HTN (hypertension) HLD (hyperlipidemia) * Home medications as ordered Code status: Full code PCP: Enoch Mitchell NP DVT Prophylaxis: Lovenox Social: Patient lives in [place] with his Disposition: Admit to hospital floor for treatment of COPD exacerbation. LOS estimated at 3-4 days Progonosis: Good - Mortality Measure Prognosis:: Good
[2020-02-10] MEDS ORDERED: Albuterol/Ipratropium 3.0-0.5 MG/3 ML Neb Soln NEB PRN (13:36)
[2020-02-10] MEDS ORDERED: Acetaminophen 325 MG Tab PO PRN (13:36)
[2020-02-10] MEDS: Sodium Chloride 0.9% 1,000 ML IV SCH (14:43)
[2020-02-10] MEDS ORDERED: Magnesium Oxide 400 MG Tab PO ONE (15:00)
[2020-02-10] MEDS ORDERED: methylPREDNISolone Sodium Succinate 40 MG/1 ML SDV IVPUSH ONE (15:00)
[2020-02-10] MEDS: Azithromycin 250 MG Tab PO SCH (16:37)
[2020-02-10] MEDS ORDERED: Benzonatate 100 MG Cap PO PRN (16:39)
[2020-02-10] MEDS: Formoterol/Mometasone 200-5 MCG 8.8 GM Inhaler IH SCH (20:07)
[2020-02-10] MEDS: guaiFENesin/Dextromethorphan 100-10 MG/5 ML Soln 5 ML Cup PO SCH (20:57)
[2020-02-10] MEDS ORDERED: Simvastatin 10 MG Tab PO SCH (21:00)
[2020-02-11] MEDS: Sodium Chloride 0.9% 1,000 ML IV SCH (00:05)
[2020-02-11] MEDS ORDERED: methylPREDNISolone Sodium Succinate 40 MG/1 ML SDV IVPUSH SCH (06:00)
[2020-02-11] MEDS: guaiFENesin/Dextromethorphan 100-10 MG/5 ML Soln 5 ML Cup PO SCH (06:02)
[2020-02-11] MEDS: Formoterol/Mometasone 200-5 MCG 8.8 GM Inhaler IH SCH (08:00)
[2020-02-11] MEDS: Azithromycin 250 MG Tab PO SCH (08:36)
[2020-02-11] MEDS ORDERED: amLODIPine 5 MG Tab PO SCH (09:00)
[2020-02-11] MEDS ORDERED: Enoxaparin 40 MG/0.4 ML Syringe SUBCUT SCH (09:00)
[2020-02-11] MEDS ORDERED: Pantoprazole 40 MG Tab.CR PO SCH (09:00)
[2020-02-11] MEDS ORDERED: Lisinopril 5 MG Tab PO SCH (09:00)
--- NOTE | 2020-02-11 10:06 | PCM.PN ---
- General Info Date of Service: 02/11/20 Admission Dx/Problem (Free Text): Admission Diagnosis/Problem Admission Diagnosis/Problem Chronic obstructive pulmonary disease - Patient Data Vitals - Most Recent: Last Vital Signs Temp 97.5 F 02/11/20 07:58 Pulse 76 02/11/20 07:58 Resp 16 02/11/20 07:58 BP 136/87 02/11/20 08:35 Pulse Ox 92 L 02/11/20 08:01 Weight - Most Recent: 235 lb 4.8 oz I&O - Last 24 Hours: Intake & Output 02/10/20 02/11/20 02/11/20 22:59 06:59 14:59 Intake Total 25 2200 Output Total 900 Balance 25 1300 Lab Results Last 24 Hours: Laboratory Results - last 24 hr 02/10/20 02/10/20 02/10/20 Range/Units 09:15 09:15 09:15 WBC (4.23-9.07) K/mm3 RBC (4.63-6.08) M/mm3 Hgb (13.7-17.5) gm/dl Hct (40.1-51.0) % MCV (79.0-92.2) fl MCH (25.7-32.2) pg MCHC (32.2-35.5) g/dl RDW Std Deviation (35.1-43.9) fL Plt Count (163-337) K/mm3 MPV (9.4-12.3) fl Neut % (Auto) (34.0-67.9) % Lymph % (Auto) (21.8-53.1) % Hardeman % (Auto) (5.3-12.2) % Eos % (Auto) (0.8-7.0) Baso % (Auto) (0.1-1.2) % Neut # (Auto) (1.78-5.38) K/mm3 Lymph # (Auto) (1.32-3.57) K/mm3 Hardeman # (Auto) (0.30-0.82) K/mm3 Eos # (Auto) (0.04-0.54) K/mm3 Baso # (Auto) (0.01-0.08) K/mm3 Manual Slide Review Normal smear D-Dimer, Quantitative (0.19-0.50) mg/L Puncture Site ABG pH (7.35-7.45) ABG pCO2 (35.0-45.0) mmHg ABG pO2 (80.0-100.0) mmHg ABG HCO3 (22.0-26.0) meq/L ABG O2 Saturation (96.0-97.0) % ABG Base Excess (-2-2.0) Cameron Test A-a Gradient mmHg O2 Delivery Device Oxygen Flow Rate FiO2 (21.00-100.00) % Sodium 133 L (136-145) mEq/L Potassium 3.9 (3.5-5.1) mEq/L Chloride 91 L (98-107) mEq/L Carbon Dioxide 38 H (21-32) mEq/L Anion Gap 7.9 (5-15) BUN 8 (7-18) mg/dL Creatinine 0.7 (0.7-1.3) mg/dL Est Cr Clr Drug Dosing 132.11 mL/min Estimated GFR (MDRD) > 60 (>60) mL/min BUN/Creatinine Ratio 11.4 L (14-18) Glucose 124 H (74-106) mg/dL Calcium 9.0 (8.5-10.1) mg/dL Magnesium 1.9 (1.8-2.4) mg/dl Total Bilirubin 0.5 (0.2-1.0) mg/dL AST 23 (15-37) U/L ALT 23 (16-63) U/L Alkaline Phosphatase 70 (46-116) U/L Troponin I < 0.017 (0.00-0.056) ng/mL C-Reactive Protein < 0.2 (<1.0) mg/dL NT-Pro-B Natriuret Pep 73 (0-125) pg/mL Total Protein 7.1 (6.4-8.2) g/dl Albumin 3.7 (3.4-5.0) g/dl Globulin 3.4 gm/dL Albumin/Globulin Ratio 1.1 (1-2) SARS-CoV-2 RNA (SHANNEN) (NEGATIVE) 02/10/20 02/10/20 02/10/20 Range/Units 09:15 10:32 12:15 WBC (4.23-9.07) K/mm3 RBC (4.63-6.08) M/mm3 Hgb (13.7-17.5) gm/dl Hct (40.1-51.0) % MCV (79.0-92.2) fl MCH (25.7-32.2) pg MCHC (32.2-35.5) g/dl RDW Std Deviation (35.1-43.9) fL Plt Count (163-337) K/mm3 MPV (9.4-12.3) fl Neut % (Auto) (34.0-67.9) % Lymph % (Auto) (21.8-53.1) % Hardeman % (Auto) (5.3-12.2) % Eos % (Auto) (0.8-7.0) Baso % (Auto) (0.1-1.2) % Neut # (Auto) (1.78-5.38) K/mm3 Lymph # (Auto) (1.32-3.57) K/mm3 Hardeman # (Auto) (0.30-0.82) K/mm3 Eos # (Auto) (0.04-0.54) K/mm3 Baso # (Auto) (0.01-0.08) K/mm3 Manual Slide Review D-Dimer, Quantitative 0.23 (0.19-0.50) mg/L Puncture Site Rt radial ABG pH 7.37 (7.35-7.45) ABG pCO2 73.7 H* (35.0-45.0) mmHg ABG pO2 65.0 L (80.0-100.0) mmHg ABG HCO3 41.1 H (22.0-26.0) meq/L ABG O2 Saturation 91.6 L (96.0-97.0) % ABG Base Excess 12.0 H (-2-2.0) Cameron Test Positive A-a Gradient mmHg O2 Delivery Device Nasal cannula Oxygen Flow Rate 2.5 FiO2 0.00 L (21.00-100.00) % Sodium (136-145) mEq/L Potassium (3.5-5.1) mEq/L Chloride (98-107) mEq/L Carbon Dioxide (21-32) mEq/L Anion Gap (5-15) BUN (7-18) mg/dL Creatinine (0.7-1.3) mg/dL Est Cr Clr Drug Dosing mL/min Estimated GFR (MDRD) (>60) mL/min BUN/Creatinine Ratio (14-18) Glucose (74-106) mg/dL Calcium (8.5-10.1) mg/dL Magnesium (1.8-2.4) mg/dl Total Bilirubin (0.2-1.0) mg/dL AST (15-37) U/L ALT (16-63) U/L Alkaline Phosphatase (46-116) U/L Troponin I (0.00-0.056) ng/mL C-Reactive Protein (<1.0) mg/dL NT-Pro-B Natriuret Pep (0-125) pg/mL Total Protein (6.4-8.2) g/dl Albumin (3.4-5.0) g/dl Globulin gm/dL Albumin/Globulin Ratio (1-2) SARS-CoV-2 RNA (SHANNEN) Negative (NEGATIVE) 02/11/20 02/11/20 02/11/20 Range/Units 04:36 04:36 08:05 WBC 6.57 (4.23-9.07) K/mm3 RBC 4.98 (4.63-6.08) M/mm3 Hgb 14.5 (13.7-17.5) gm/dl Hct 45.9 (40.1-51.0) % MCV 92.2 (79.0-92.2) fl MCH 29.1 (25.7-32.2) pg MCHC 31.6 L (32.2-35.5) g/dl RDW Std Deviation 42.8 (35.1-43.9) fL Plt Count 200 (163-337) K/mm3 MPV 9.5 (9.4-12.3) fl Neut % (Auto) 78.2 H (34.0-67.9) % Lymph % (Auto) 13.4 L (21.8-53.1) % Hardeman % (Auto) 8.1 (5.3-12.2) % Eos % (Auto) 0 L (0.8-7.0) Baso % (Auto) 0.0 L (0.1-1.2) % Neut # (Auto) 5.14 (1.78-5.38) K/mm3 Lymph # (Auto) 0.88 L (1.32-3.57) K/mm3 Hardeman # (Auto) 0.53 (0.30-0.82) K/mm3 Eos # (Auto) 0.00 L (0.04-0.54) K/mm3 Baso # (Auto) 0.00 L (0.01-0.08) K/mm3 Manual Slide Review D-Dimer, Quantitative (0.19-0.50) mg/L Puncture Site Rt radial ABG pH 7.36 (7.35-7.45) ABG pCO2 66.9 H (35.0-45.0) mmHg ABG pO2 69.0 L (80.0-100.0) mmHg ABG HCO3 36.6 H (22.0-26.0) meq/L ABG O2 Saturation 92.8 L (96.0-97.0) % ABG Base Excess 8.7 H (-2-2.0) Cameron Test Positive A-a Gradient 47 mmHg O2 Delivery Device Nasal cannula Oxygen Flow Rate 2.0 FiO2 28.00 (21.00-100.00) % Sodium 133 L (136-145) mEq/L Potassium 3.8 (3.5-5.1) mEq/L Chloride 94 L (98-107) mEq/L Carbon Dioxide 37 H (21-32) mEq/L Anion Gap 5.8 (5-15) BUN 5 L (7-18) mg/dL Creatinine 0.5 L (0.7-1.3) mg/dL Est Cr Clr Drug Dosing 184.95 mL/min Estimated GFR (MDRD) > 60 (>60) mL/min BUN/Creatinine Ratio 10.0 L (14-18) Glucose 114 H (74-106) mg/dL Calcium 8.8 (8.5-10.1) mg/dL Magnesium 2.1 (1.8-2.4) mg/dl Total Bilirubin (0.2-1.0) mg/dL AST (15-37) U/L ALT (16-63) U/L Alkaline Phosphatase (46-116) U/L Troponin I (0.00-0.056) ng/mL C-Reactive Protein (<1.0) mg/dL NT-Pro-B Natriuret Pep (0-125) pg/mL Total Protein (6.4-8.2) g/dl Albumin (3.4-5.0) g/dl Globulin gm/dL Albumin/Globulin Ratio (1-2) SARS-CoV-2 RNA (SHANNEN) (NEGATIVE) Rhett Results Last 24 Hours: Microbiology 02/10/20 18:30 Gram Stain - Final Sputum - Expectorated Sputum Culture - Preliminary Med Orders - Current: Current Medications Acetaminophen (Tylenol) 650 mg PO Q4H PRN PRN Reason: Pain (Mild 1-3)/fever Albuterol/Ipratropium (Duoneb 3.0-0.5 Mg/3 Ml) 3 ml NEB Q4H PRN PRN Reason: Shortness Of Breath/wheezing Last Admin: 02/10/20 17:55 Dose: 3 ml Documented by: Amlodipine Besylate (Norvasc) 5 mg PO DAILY [facility] Last Admin: 02/11/20 08:33 Dose: 5 mg Documented by: Azithromycin (Zithromax) 500 mg PO DAILY [facility] Last Admin: 02/11/20 08:36 Dose: 500 mg Documented by: Benzonatate (Tessalon Perles) 100 mg PO TID PRN PRN Reason: Congestion/cough Enoxaparin Sodium (Lovenox) 40 mg SUBCUT DAILY [facility] Last Admin: 02/11/20 08:32 Dose: 40 mg Documented by: Guaifenesin/Phenylephrine HCl (Robitussin Dm) 10 ml PO TID@0700,1400,2100 [facility] Last Admin: 02/11/20 06:02 Dose: 10 ml Documented by: Sodium Chloride (Normal Saline) 1,000 mls @ 100 mls/hr IV ASDIRECTED [facility] Stop: 02/11/20 23:44 Last Admin: 02/11/20 00:05 Dose: 100 mls/hr Documented by: Lisinopril (Prinivil) 5 mg PO DAILY [facility] Last Admin: 02/11/20 08:35 Dose: 5 mg Documented by: Methylprednisolone Sodium Succinate (Solu-Medrol) 40 mg IVPUSH Q12H [facility] Last Admin: 02/11/20 06:03 Dose: 40 mg Documented by: Mometasone Furoate/Formoterol Fumar (Dulera 200-5 Mcg) 2 puff IH BID [facility] Last Admin: 02/11/20 08:00 Dose: 2 puff Documented by: Pantoprazole Sodium (Protonix) 40 mg PO DAILY [facility] Last Admin: 02/11/20 08:33 Dose: 40 mg Documented by: Simvastatin (Zocor) 10 mg PO BEDTIME [facility] Last Admin: 02/10/20 20:56 Dose: 10 mg Documented by: Sodium Chloride (Saline Flush) 10 ml FLUSH ASDIRECTED PRN PRN Reason: Keep Vein Open Last Admin: 02/10/20 09:46 Dose: 10 ml Documented by: Discontinued Medications Magnesium Oxide (Magnesium Oxide) 400 mg PO ONETIME ONE Stop: 02/10/20 15:01 Last Admin: 02/10/20 14:47 Dose: 400 mg Documented by: Methylprednisolone Sodium Succinate (Solu-Medrol) 40 mg IVPUSH ONETIME ONE Stop: 02/10/20 15:01 Last Admin: 02/10/20 14:45 Dose: 40 mg Documented by: Sepsis Event Note - Evaluation Sepsis Screening Result: No Definite Risk - Focused Exam Vital Signs: Vital Signs Temp Pulse Resp BP Pulse Ox Pulse Ox 02/11/20 08:35 136/87 02/11/20 08:33 136/87 02/11/20 08:01 92 L 02/11/20 07:58 97.5 F 76 16 145/70 H 94 L 02/11/20 03:50 97.9 F 82 18 124/75 94 L 02/10/20 23:58 98.1 F 94 20 145/69 H 88 L - Problem List & Annotations (1) COPD exacerbation SNOMED Code(s): 043909297 Code(s): J44.1 - CHRONIC OBSTRUCTIVE PULMONARY DISEASE W (ACUTE) EXACERBATION Status: Acute Priority: High Current Visit: Yes (2) HTN (hypertension) SNOMED Code(s): 84115873 Code(s): I10 - ESSENTIAL (PRIMARY) HYPERTENSION Status: Chronic Priority: Medium Current Visit: No Qualifiers: Hypertension type: unspecified Qualified Code(s): I10 - Essential (primary) hypertension (3) HLD (hyperlipidemia) SNOMED Code(s): 45850031 Code(s): E78.5 - HYPERLIPIDEMIA, UNSPECIFIED Status: Chronic Priority: Low Current Visit: No Qualifiers: Hyperlipidemia type: unspecified Qualified Code(s): E78.5 - Hyperlipidemia, unspecified (4) COPD (chronic obstructive pulmonary disease) SNOMED Code(s): 55189435 Code(s): J44.9 - CHRONIC OBSTRUCTIVE PULMONARY DISEASE, UNSPECIFIED Status: Acute Priority: High Current Visit: Yes Qualifiers: COPD type: unspecified COPD Qualified Code(s): J44.9 - Chronic obstructive pulmonary disease, unspecified (5) Former smoker SNOMED Code(s): 1728139 Code(s): Z87.891 - PERSONAL HISTORY OF NICOTINE DEPENDENCE Status: Chronic Priority: Low Current Visit: No (6) Oxygen dependent SNOMED Code(s): 165790047803 Code(s): Z99.81 - DEPENDENCE ON SUPPLEMENTAL OXYGEN Status: Chronic Priority: Medium Current Visit: Yes (7) Hypomagnesemia SNOMED Code(s): 538625630 Code(s): E83.42 - HYPOMAGNESEMIA Status: Acute Priority: High Current Visit: Yes (8) Hyperchloremia SNOMED Code(s): 94940284 Code(s): E87.8 - OTH DISORDERS OF ELECTROLYTE AND FLUID BALANCE, NEC Status: Acute Priority: High Current Visit: Yes (9) Metabolic alkalosis with respiratory acidosis SNOMED Code(s): 575725303 Code(s): E87.4 - MIXED DISORDER OF ACID-BASE BALANCE Status: Acute Priority: High Current Visit: Yes - My Orders Last 24 Hours: My Active Orders 02/10/20 Lunch Regular Diet [DIET] 02/10/20 13:36 Height and Weight [RC] 04 Intake and Output [RC] 04,16 Oxygen Therapy [RC] PRN Up With Assistance [RC] BID VTE/DVT Education [RC] BID Vital Signs [RC] Q4HR Respiratory Care Assess and Treatment [CONS] Routine Acetaminophen [TylenoL] 650 mg PO Q4H PRN Albuterol/Ipratropium [DuoNeb 3.0-0.5 MG/3 ML] 3 ml NEB Q4H PRN 02/10/20 13:37 RT Aerosol Therapy [RC] ASDIRECTED 02/10/20 13:41 RT Incentive Spirometry [RC] ASDIRECTED 02/10/20 13:45 Sodium Chloride 0.9% [Normal Saline] 1,000 ml IV ASDIRECTED 02/10/20 13:50 CPAP Noctural Home [RT BiPAP/CPAP] [RC] ASDIRECTED 02/10/20 16:00 Azithromycin [Zithromax] 500 mg PO DAILY 02/10/20 16:34 Acapella [RT Chest Physiotherapy] [RC] ASDIRECTED Code Status [Resuscitation Status] Routine 02/10/20 16:39 Benzonatate [Tessalon Perles] 100 mg PO TID PRN 02/10/20 18:30 CULTURE SPUTUM + SMEAR [RM] Routine 02/10/20 21:00 Dextromethorphan/guaiFENesin [Robitussin DM] 10 ml PO TID@0700,1400,2100 Mometasone/Formoterol [Dulera 200-5 MCG] 2 puff IH BID Simvastatin [Zocor] 10 mg PO BEDTIME 02/11/20 06:00 methylPREDNISolone Sod Succ [Solu-MEDROL] 40 mg IVPUSH Q12H 02/11/20 09:00 Enoxaparin [Lovenox] 40 mg SUBCUT DAILY Pantoprazole [ProTONIX] 40 mg PO DAILY amLODIPine [Norvasc] 5 mg PO DAILY lisinopriL [Prinivil] 5 mg PO DAILY 02/12/20 05:11 BASIC METABOLIC PANEL,BMP [CHEM] AM CBC WITH AUTO DIFF [HEME] AM MAGNESIUM [CHEM] AM 02/13/20 05:11 BASIC METABOLIC PANEL,BMP [CHEM] AM CBC WITH AUTO DIFF [HEME] AM MAGNESIUM [CHEM] AM 02/14/20 05:11 BASIC METABOLIC PANEL,BMP [CHEM] AM CBC WITH AUTO DIFF [HEME] AM MAGNESIUM [CHEM] AM - Plan Plan:: Assessment - day of admission 02/10/2020 * 59 yo male who presents to our ED with increased SOB, cough, fatigue, and chest congestion * Reports he was recently started on 20mg lasix with no improvement * Denies any orthopnea or edema * Was wearing oxygen only at night but now up to 5L at all times * Reports negative COVID-19 test about a week ago * Hx of COPD, HTN, HLD, and former smoker * 12-Lead EKG in ED: NSR with probable left atrial enlargement, minimal ST elevation in lateral leads, baseline wander in V1-V2\ * Wears home CPAP at night * CXR in ED shows nothing acute - formal read pending * Labs in ED: * WBC 10.16 * Hgb 15.2 * PLT 219 * Neutrophils 8.15 * Sodium 133 * Potassium 3.9 * Chloride 91 * Carbon Dioxide 38 * Anion gap 7.9 * GFR >60 * Magnesium 1.9 * Total bilirubin 0.5 * AST23, ALT 23, Alp phos 70 * Troponin I <0.017 * CRP <0.2 * Pro-BNP 73 * Protein 7.1 * Albumin 3.7 * D-Dimer 0.23 * ABG: pH 7.37, PCO2 73.7, PO2 65.0, HCO3 41.1, O2 saturation 91.6, base excess 12.0. * SARS-CoV-2 RNA negative * Reports last PFT was 15 years ago * Reports recently underwent throat surgery to remove a benign mass resulting in hoarseness of voice. PLAN: COPD exacerbation Metabolic alkalosis with respiratory acidosis Hyperchloremia COPD (chronic obstructive pulmonary disease) Former smoker Oxygen dependant * PRN duonebs * Start 500mg PO Azithromycin * O2 as need with saturation goal of 88-94% * Consult RT * Dulera (substitute for home Symbicort) * Steroids as ordered * IV fluids as ordered * IS/Acapella * Hold home Lasix * Sputum culture * Scheduled Robitussin DM * PRN Zulma Cao * Recommend PFT at discharge Hypomagnesemia * Supplement HTN (hypertension) HLD (hyperlipidemia) * Home medications as ordered Code status: Full code PCP: Enoch Mitchell NP DVT Prophylaxis: Lovenox Social: Patient lives in [place] with his Disposition: Admit to hospital floor for treatment of COPD exacerbation. LOS estimated at 3-4 days Progonosis: Good
--- NOTE | 2020-02-11 11:40 | CR ---
Chest: Portable view of the chest was obtained. Comparison: No prior chest imaging is available. Heart size and mediastinum are within normal limits. Lungs are clear with no acute parenchymal change. Bony structures are grossly intact. Impression: 1. Nothing acute is seen on portable chest x-ray. Diagnostic code #1
--- NOTE | 2020-02-11 11:59 | PCM.DCSUM1 ---
Discharge Summary - Hospital Course HPI Initial Comments: This is a 59-year-old male who presents to ED on 02/10/2020 with increased shortness of breath and chest congestion. He states he has had cough and fatigue for several days however today he feels worse. He was recently started on a diuretic by his primary care provider and old records show that it is Lasix 20 mg daily. He has seen no improvement with this medication. Reports he has been on several rounds of antibiotics for pneumonia. Reports a cough that is dry he is on home oxygen and has noticed an increased need. He states that he wear oxygen at nighttime only prior and now he is wearing it all the time at 5 L. Denies fever chills, swelling to feet or ankles, orthopnea, or other infectious symptoms. Reports he was tested for Covid about a week ago and was negative and that his is frequently tested due to her employment. In the ED twelve-lead EKG is obtained showing a sinus rhythm at 99 bpm. There is probable left atrial enlargement with minimal ST elevation in the lateral leads and baseline wander in leads V1 and V2. Is 98 F. Pulse 120. Respirations 18. Blood pressure 117/85. Pulse ox 94%. Labs are obtained showing minimal leukocytosis at 10.16. Hemoglobin 15.2. Hematocrit 40.3. He is macrocytic. Platelets are good at 219,000. Neutrophils are elevated at 0.15. Sodium is slightly low at 133. Potassium 3.9. Chloride 91. Carbon dioxide is 38. Anion gap is 7.9. BUN is 8. Creatinine 0.7. GFR is greater than 60. Glucose is 124. Calcium 9.0. Magnesium 1.9. Bilirubin 0.5. AST 23, ALT 23, alkaline phosphatase 70. Troponin is less than 0.017. CRP is less than 0.2. proBNP is 73. Protein is 7.1. Albumin 3.7. D-dimer 0.23. ABG is obtained in the right radial showing a pH of 7.37. PCO2 of 73.7. PO2 of 65. HCO3 of 41.1. O2 saturation 91.6. Base excess is 12.0. This is while on 2.5 L via nasal cannula. SARS-CoV-2 RNA is negative. Patient initially was adamant about leaving and asked to check out AMA. He pulled out his own IV but after discussion with his he agreed to stay. He carries a history of HLD, HTN, COPD, prior tobacco use and that he stopped in August 2019. He subsequently admitted to the medical floor for treatment of his COPD exacerbation. He is a full code. His PCP is Matilda Mitchell NP. He recently underwent surgery to remove a mass in his throat resulting in hoarse voice. Diagnosis: Stroke: No - Discharge Data Discharge Date: 02/11/20 (Admit date: 02/09/2019) Discharge Disposition: Home, Self-Care 01 Condition: Good - Referral to Home Health Primary Care Physician: Matilda Mitchell NP - Discharge Diagnosis/Problem(s) (1) COPD exacerbation SNOMED Code(s): 331372166 ICD Code: J44.1 - CHRONIC OBSTRUCTIVE PULMONARY DISEASE W (ACUTE) EXACERBATION Status: Acute Priority: High (2) HTN (hypertension) SNOMED Code(s): 03392469 ICD Code: I10 - ESSENTIAL (PRIMARY) HYPERTENSION Status: Chronic Priority: Medium Qualifiers: Hypertension type: unspecified Qualified Code(s): I10 - Essential (primary) hypertension (3) HLD (hyperlipidemia) SNOMED Code(s): 96799182 ICD Code: E78.5 - HYPERLIPIDEMIA, UNSPECIFIED Status: Chronic Priority: Low Qualifiers: Hyperlipidemia type: unspecified Qualified Code(s): E78.5 - Hyperlipidemia, unspecified (4) COPD (chronic obstructive pulmonary disease) SNOMED Code(s): 41006078 ICD Code: J44.9 - CHRONIC OBSTRUCTIVE PULMONARY DISEASE, UNSPECIFIED Status: Acute Priority: High Qualifiers: COPD type: unspecified COPD Qualified Code(s): J44.9 - Chronic obstructive pulmonary disease, unspecified (5) Former smoker SNOMED Code(s): 6947213 ICD Code: Z87.891 - PERSONAL HISTORY OF NICOTINE DEPENDENCE Status: Chronic Priority: Low (6) Oxygen dependent SNOMED Code(s): 687176310230 ICD Code: Z99.81 - DEPENDENCE ON SUPPLEMENTAL OXYGEN Status: Chronic Priority: Medium (7) Hypomagnesemia SNOMED Code(s): 978846887 ICD Code: E83.42 - HYPOMAGNESEMIA Status: Resolved Priority: High (8) Metabolic alkalosis with respiratory acidosis SNOMED Code(s): 846346568 ICD Code: E87.4 - MIXED DISORDER OF ACID-BASE BALANCE Status: Acute Priority: High (9) Hypochloremia SNOMED Code(s): 05865598 ICD Code: E87.8 - OTH DISORDERS OF ELECTROLYTE AND FLUID BALANCE, NEC Status: Acute Priority: High - Patient Summary/Data Consults: Consultations 02/10/20 13:36 Respiratory Care Assess and Treatment [CONS] Routine Labs Pending at D/C: None Recommended Follow-up Testing/Procedures: Follow-up with primary care provider within 5-7 days of discharge, sooner if needed. Follow-up with primary care provider for outpatient PFT once symptoms have resolved. Hospital Course: This is a 59-year-old male who was admitted for a COPD exacerbation metabolic alkalosis with respiratory acidosis and hypochloremia. Started on 500 mg p.o. azithromycin and p.o. steroids. He is also given scheduled Robitussin which he states increase his sputum production. Is felt the patient's symptoms were likely a combination of self-medicating with his oxygen and his recently prescribed Lasix. Patient admits that he was cranking his oxygen all the way up to 5 L as his symptoms worsened. He does have a nighttime CPAP that he wears quite religiously. We discussed ensuring that he wears that whenever he naps or sleeps for the night. Home respiratory medications were continued. He was given IV fluids. Sputum culture was obtained and is still pending. Magnesium was low and was supplemented. In the ER and on the floor patient was talking about leaving AMA multiple times. He did not want to be in the hospital. Clinically he appeared to improve overnight. 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 This has resulted in the patient having quite a raspy voice and very rough sounding cough. He reports this is been no worse. Labs this morning improved and his ABG showed a PCO2 of 66.9. Patient would like to go home. Discussed discharge medications with Dr. Vazquez and ultimately patient will be prescribed 7 days of 50 mg p.o. prednisone. Also be prescribed as needed Robitussin-DM for cough and 3 days of p.o. azithromycin. He was instructed to stop his Lasix and to leave his oxygen at 2 L. His instructed to continue to utilize his incentive spirometer and Acapella for 1-2 more weeks or until symptoms resolve. He was instructed to follow-up with his primary care provider within 5 to 7 days of discharge, sooner if needed. At that time decision should be made as patient may require longer duration of steroid treatment. Recommend repeat CBC, CMP, and magnesium at that time. Consider repeat chest x-ray. Patient reports last PFT was 15 years ago and we are recommending patient undergo a repeat PFT after these symptoms resolve. He was discharged home today. - Patient Instructions Diet: Usual Diet as Tolerated Activity: As Tolerated Driving: Do Not Drive (today ) Showering/Bathing: May Shower Notify Provider of: Fever, Increased Pain, Nausea and/or Vomiting Other/Special Instructions: Follow-up with primary care provider within 5-7 days of discharge, sooner if needed. Discuss your steroid with your provider at your follow-up appointment. You may need this for longer. Recommend outpatient pulmonary function testing. This can be scheduled with your provider. Continue to utilize your incentive spirometer (clear/blue device you inhale through) and acapella (green tube you blow throug) for 1-2 more weeks or until symptoms improve. Resume home medications as directed. Stop your lasix as we discussed. Continue to utilize your home CPAP at night when sleeping and when napping. Should symptoms return or worsen contact your primary care provider or return to the Emergency Department. - Discharge Plan *PRESCRIPTION DRUG MONITORING PROGRAM REVIEWED*: No *COPY OF PRESCRIPTION DRUG MONITORING REPORT IN PATIENT JAZMIN: No Prescriptions/Med Rec: predniSONE [Prednisone] 50 mg PO DAILY #7 tablet Dextromethorphan/guaiFENesin [Robitussin DM] 10 ml PO TID PRN #2 cup PRN Reason: Cough Azithromycin [Zithromax] 500 mg PO DAILY #3 tablet Home Medications: Home Meds Albuterol Sulfate [Albuterol Sulfate Hfa] 2 inh IH Q4H PRN 02/10/20 [History] Budesonide/Formoterol Fumarate [Symbicort 160-4.5 Mcg Inhaler] 2 inh IH BID 05/27 [History] Fluticasone Furoate [Arnuity Ellipta] 2 inh ROSIE DAILY 02/10/20 [History] Ipratropium/Albuterol Sulfate [Iprat-Albut 0.5-3(2.5) mg/3 ml] 3 ml IH Q6HR 02/10/20 [History] Omeprazole 40 mg PO DAILY 02/10/20 [History] Quinapril [Accupril] 10 mg PO DAILY 02/10/20 [History] amLODIPine [Norvasc] 5 mg PO DAILY 02/10/20 [History] atorvaSTATin [Lipitor] 10 mg PO BEDTIME 02/10/20 [History] Azithromycin [Zithromax] 500 mg PO DAILY #3 tablet 02/11/20 [Rx] Dextromethorphan/guaiFENesin [Robitussin DM] 10 ml PO TID PRN #2 cup 02/11/20 [Rx] predniSONE [Prednisone] 50 mg PO DAILY #7 tablet 02/11/20 [Rx] Oxygen Therapy Mode: Nasal Cannula Oxygen Flow Rate (L/min): 2 Maintain SPO2% less than: 96 Maintain SpO2% greater than: 88 Patient Handouts: Chronic Obstructive Pulmonary Disease, Alcohol Abuse and Dependence Information, Adult, Sepsis, Diagnosis, Adult Forms: ED Department Discharge Referrals: Matilda Mitchell NP [Primary Care Provider] - 02/18/20 11:00 am (please attend the scheduled follow up appointment as listed) - Discharge Summary/Plan Comment DC Time >30 min.: Yes (45 mins ) - General Info Date of Service: 02/11/20 Admission Dx/Problem (Free Text: Admission Diagnosis/Problem Admission Diagnosis/Problem Chronic obstructive pulmonary disease Functional Status: Reports: Pain Controlled, Tolerating Diet, Ambulating, Urinating, Incentive Spirometry, Other (Acapella ). Denies: New Symptoms - Review of Systems General: Reports: No Symptoms. Denies: Fever, Weakness, Fatigue, Malaise, Chills HEENT: Reports: No Symptoms. Denies: Headaches, Sore Throat Pulmonary: Reports: Shortness of Breath, Cough, Sputum, Wheezing. Denies: Pleuritic Chest Pain Cardiovascular: Reports: Dyspnea on Exertion. Denies: Chest Pain, Palpitations, Edema Gastrointestinal: Reports: No Symptoms. Denies: Abdominal Pain, Constipation, Diarrhea, Nausea, Vomiting Genitourinary: Reports: No Symptoms. Denies: Pain Musculoskeletal: Reports: No Symptoms Skin: Reports: No Symptoms. Denies: Cyanosis Neurological: Reports: No Symptoms. Denies: Confusion, Difficulty Walking, Gait Disturbance Psychiatric: Reports: No Symptoms - Patient Data Vitals - Most Recent: Last Vital Signs Temp 97.5 F 02/11/20 07:58 Pulse 76 02/11/20 07:58 Resp 16 02/11/20 07:58 BP 136/87 02/11/20 08:35 Pulse Ox 92 L 02/11/20 08:01 Weight - Most Recent: 235 lb 4.8 oz I&O - Last 24 hours: Intake & Output 02/10/20 02/11/20 02/11/20 22:59 06:59 14:59 Intake Total 25 2200 Output Total 900 Balance 25 1300 Lab Results - Last 24 hrs: Laboratory Results - last 24 hr 02/10/20 02/10/20 02/11/20 Range/Units 09:15 12:15 04:36 WBC 6.57 (4.23-9.07) K/mm3 RBC 4.98 (4.63-6.08) M/mm3 Hgb 14.5 (13.7-17.5) gm/dl Hct 45.9 (40.1-51.0) % MCV 92.2 (79.0-92.2) fl MCH 29.1 (25.7-32.2) pg MCHC 31.6 L (32.2-35.5) g/dl RDW Std Deviation 42.8 (35.1-43.9) fL Plt Count 200 (163-337) K/mm3 MPV 9.5 (9.4-12.3) fl Neut % (Auto) 78.2 H (34.0-67.9) % Lymph % (Auto) 13.4 L (21.8-53.1) % [place] % (Auto) 8.1 (5.3-12.2) % Eos % (Auto) 0 L (0.8-7.0) Baso % (Auto) 0.0 L (0.1-1.2) % Neut # (Auto) 5.14 (1.78-5.38) K/mm3 Lymph # (Auto) 0.88 L (1.32-3.57) K/mm3 [place] # (Auto) 0.53 (0.30-0.82) K/mm3 Eos # (Auto) 0.00 L (0.04-0.54) K/mm3 Baso # (Auto) 0.00 L (0.01-0.08) K/mm3 D-Dimer, Quantitative 0.23 (0.19-0.50) mg/L Puncture Site ABG pH (7.35-7.45) ABG pCO2 (35.0-45.0) mmHg ABG pO2 (80.0-100.0) mmHg ABG HCO3 (22.0-26.0) meq/L ABG O2 Saturation (96.0-97.0) % ABG Base Excess (-2-2.0) Cameron Test A-a Gradient mmHg O2 Delivery Device Oxygen Flow Rate FiO2 (21.00-100.00) % Sodium (136-145) mEq/L Potassium (3.5-5.1) mEq/L Chloride (98-107) mEq/L Carbon Dioxide (21-32) mEq/L Anion Gap (5-15) BUN (7-18) mg/dL Creatinine (0.7-1.3) mg/dL Est Cr Clr Drug Dosing mL/min Estimated GFR (MDRD) (>60) mL/min BUN/Creatinine Ratio (14-18) Glucose (74-106) mg/dL Calcium (8.5-10.1) mg/dL Magnesium (1.8-2.4) mg/dl SARS-CoV-2 RNA (SHANNEN) Negative (NEGATIVE) 02/11/20 02/11/20 Range/Units 04:36 08:05 WBC (4.23-9.07) K/mm3 RBC (4.63-6.08) M/mm3 Hgb (13.7-17.5) gm/dl Hct (40.1-51.0) % MCV (79.0-92.2) fl MCH (25.7-32.2) pg MCHC (32.2-35.5) g/dl RDW Std Deviation (35.1-43.9) fL Plt Count (163-337) K/mm3 MPV (9.4-12.3) fl Neut % (Auto) (34.0-67.9) % Lymph % (Auto) (21.8-53.1) % [place] % (Auto) (5.3-12.2) % Eos % (Auto) (0.8-7.0) Baso % (Auto) (0.1-1.2) % Neut # (Auto) (1.78-5.38) K/mm3 Lymph # (Auto) (1.32-3.57) K/mm3 [place] # (Auto) (0.30-0.82) K/mm3 Eos # (Auto) (0.04-0.54) K/mm3 Baso # (Auto) (0.01-0.08) K/mm3 D-Dimer, Quantitative (0.19-0.50) mg/L Puncture Site Rt radial ABG pH 7.36 (7.35-7.45) ABG pCO2 66.9 H (35.0-45.0) mmHg ABG pO2 69.0 L (80.0-100.0) mmHg ABG HCO3 36.6 H (22.0-26.0) meq/L ABG O2 Saturation 92.8 L (96.0-97.0) % ABG Base Excess 8.7 H (-2-2.0) Cameron Test Positive A-a Gradient 47 mmHg O2 Delivery Device Nasal cannula Oxygen Flow Rate 2.0 FiO2 28.00 (21.00-100.00) % Sodium 133 L (136-145) mEq/L Potassium 3.8 (3.5-5.1) mEq/L Chloride 94 L (98-107) mEq/L Carbon Dioxide 37 H (21-32) mEq/L Anion Gap 5.8 (5-15) BUN 5 L (7-18) mg/dL Creatinine 0.5 L (0.7-1.3) mg/dL Est Cr Clr Drug Dosing 184.95 mL/min Estimated GFR (MDRD) > 60 (>60) mL/min BUN/Creatinine Ratio 10.0 L (14-18) Glucose 114 H (74-106) mg/dL Calcium 8.8 (8.5-10.1) mg/dL Magnesium 2.1 (1.8-2.4) mg/dl SARS-CoV-2 RNA (SHANNEN) (NEGATIVE) NICOLAS Results - Last 24 hrs: Microbiology 02/10/20 18:30 Gram Stain - Final Sputum - Expectorated Sputum Culture - Preliminary Med Orders - Current: Current Medications Acetaminophen (Tylenol) 650 mg PO Q4H PRN PRN Reason: Pain (Mild 1-3)/fever Albuterol/Ipratropium (Duoneb 3.0-0.5 Mg/3 Ml) 3 ml NEB Q4H PRN PRN Reason: Shortness Of Breath/wheezing Last Admin: 02/10/20 17:55 Dose: 3 ml Documented by: Amlodipine Besylate (Norvasc) 5 mg PO DAILY [facility] Last Admin: 02/11/20 08:33 Dose: 5 mg Documented by: Azithromycin (Zithromax) 500 mg PO DAILY [facility] Last Admin: 02/11/20 08:36 Dose: 500 mg Documented by: Benzonatate (Tessalon Perles) 100 mg PO TID PRN PRN Reason: Congestion/cough Enoxaparin Sodium (Lovenox) 40 mg SUBCUT DAILY [facility] Last Admin: 02/11/20 08:32 Dose: 40 mg Documented by: Guaifenesin/Phenylephrine HCl (Robitussin Dm) 10 ml PO TID@0700,1400,2100 [facility] Last Admin: 02/11/20 06:02 Dose: 10 ml Documented by: Sodium Chloride (Normal Saline) 1,000 mls @ 100 mls/hr IV ASDIRECTED [facility] Stop: 02/11/20 23:44 Last Admin: 02/11/20 00:05 Dose: 100 mls/hr Documented by: Lisinopril (Prinivil) 5 mg PO DAILY [facility] Last Admin: 02/11/20 08:35 Dose: 5 mg Documented by: Methylprednisolone Sodium Succinate (Solu-Medrol) 40 mg IVPUSH Q12H [facility] Last Admin: 02/11/20 06:03 Dose: 40 mg Documented by: Mometasone Furoate/Formoterol Fumar (Dulera 200-5 Mcg) 2 puff IH BID [facility] Last Admin: 02/11/20 08:00 Dose: 2 puff Documented by: Pantoprazole Sodium (Protonix) 40 mg PO DAILY [facility] Last Admin: 02/11/20 08:33 Dose: 40 mg Documented by: Simvastatin (Zocor) 10 mg PO BEDTIME [facility] Last Admin: 02/10/20 20:56 Dose: 10 mg Documented by: Sodium Chloride (Saline Flush) 10 ml FLUSH ASDIRECTED PRN PRN Reason: Keep Vein Open Last Admin: 02/10/20 09:46 Dose: 10 ml Documented by: Discontinued Medications Magnesium Oxide (Magnesium Oxide) 400 mg PO ONETIME ONE Stop: 02/10/20 15:01 Last Admin: 02/10/20 14:47 Dose: 400 mg Documented by: Methylprednisolone Sodium Succinate (Solu-Medrol) 40 mg IVPUSH ONETIME ONE Stop: 02/10/20 15:01 Last Admin: 02/10/20 14:45 Dose: 40 mg Documented by: - Exam Quality Assessment: Reports: Supplemental Oxygen (2L), DVT Prophylaxis. Denies: Urine Catheter General: Reports: Alert, Oriented, Cooperative, No Acute Distress HEENT: Reports: Pupils Equal, Pupils Reactive, Mucous Membr. Moist/Vici Neck: Reports: Supple, Trachea Midline Lungs: Reports: Normal Respiratory Effort, Decreased Breath Sounds (improved ), Crackles (minimal ), Wheezing (minimal ) Cardiovascular: Reports: Regular Rate, Regular Rhythm GI/Abdominal Exam: Normal Bowel Sounds, Soft, Non-Tender, No Distention (Male) Exam: Deferred Rectal (Males) Exam: Deferred Back Exam: Reports: Normal Inspection, Full Range of Motion Extremities: Normal Inspection, Normal Range of Motion, Non-Tender, Normal Capillary Refill, Pedal Edema (1-2+ right, trace left) Skin: Reports: Warm, Dry, Intact Neurological: Reports: No New Focal Deficit Psy/Mental Status: Reports: Alert
== END 2020-02-11 12:46 | disposition home or self-care (01) | DRG 140 ==
LOC: JD.ED 08:49 → JD.MS 13:09
PROVIDERS: ADMIT Family Medicine; ATTEND Family Medicine
DX: J44.1 Chronic obstructive pulmonary disease with (acute) exacerbation (principal); E87.4 Mixed disorder of acid-base balance; E87.8 Other disorders of electrolyte and fluid balance, not elsewhere classified; E83.42 Hypomagnesemia; Z87.891 Personal history of nicotine dependence; E78.5 Hyperlipidemia, unspecified; I10 Essential (primary) hypertension; Z99.81 Dependence on supplemental oxygen; Z83.42 Family history of familial hypercholesterolemia; Z20.822 Contact with and (suspected) exposure to COVID-19
CPT/HCPCS: 36415; 36600; 71045; 71045-26; 80048; 80053; 82803; 83735; 83880; 84484; 85025; 85379; 86140; 87070; 87205; 93005; 93010; 94640; 94667; 94668; 94760; 94761; 99284; 99285-25; A9270-GY; J1650; J2920; J7030; J7620-GY; U0002

== ENCOUNTER 2020-03-09 00:49 | Emergency (ER) | payer BC ==
--- NOTE | 2020-03-09 00:59 | EDM.PDOC ---
ED HPI GENERAL MEDICAL PROBLEM - General Chief Complaint: Respiratory Problem Stated Complaint: [facility] Time Seen by Provider: 03/09/20 00:59 - History of Present Illness INITIAL COMMENTS - FREE TEXT/NARRATIVE: 59-year-old male presents the emergency room with shortness of breath. Patient was brought in by EMS after fairly sudden onset shortness of breath. Patient was recently admitted here a few weeks ago with shortness of breath. He has done well. However he states he has been using the prednisone on an as- needed basis he was put on a 5-day burst therapy at the time of discharge. He has been using his nebulizers 3 times a day. He usually is on oxygen 3 L a day. He denies fevers chills or worsening cough. Patient has not had any recent fevers or chills no chest pain chest pressure. Patient was given a nebulizer by EMS and is doing much better now. - Related Data Allergies Allergy/AdvReac Type Severity Reaction Status Date / Time No Known Allergies Allergy Verified 03/09/20 00:56 Home Meds: Home Meds Quinapril [Accupril] 10 mg PO DAILY 02/10/20 [History] amLODIPine [Norvasc] 5 mg PO DAILY 02/10/20 [History] atorvaSTATin [Lipitor] 10 mg PO BEDTIME 02/10/20 [History] predniSONE [Prednisone] 50 mg PO DAILY #7 tablet 02/11/20 [Rx] Azithromycin 250 mg PO DAILY #4 tablet 03/09/20 [Rx] Cefuroxime Axetil [Ceftin] 500 mg PO BID #12 tablet 03/09/20 [Rx] predniSONE 20 mg PO ASDIRECTED #20 tab 03/09/20 [Rx] Past Medical History HEENT History: Reports: Hard of Hearing, Impaired Vision Cardiovascular History: Reports: High Cholesterol, Hypertension Respiratory History: Reports: Bronchitis, Recurrent, COPD, Pneumonia, Recurrent, Sleep Apnea, SOB Gastrointestinal History: Reports: GERD Endocrine/Metabolic History: Reports: Obesity/BMI 30+ - Past Surgical History HEENT Surgical History: Reports: Other (See Below) Other HEENT Surgeries/Procedures: removed benign mass from neck in October 2019 Cardiovascular Surgical History: Reports: None Respiratory Surgical History: Reports: None GI Surgical History: Reports: None Endocrine Surgical History: Reports: None Social & Family History - Family History Cardiac: Reports: [place] Other Cardiac Family History: Father of [place] - Caffeine Use Caffeine Use: Reports: Coffee Other Caffeine Use: 2 cups a day ED ROS GENERAL - Review of Systems Review Of Systems: See Below Constitutional: Reports: No Symptoms HEENT: Reports: No Symptoms Respiratory: Reports: Shortness of Breath. Denies: Cough, Sputum Cardiovascular: Reports: No Symptoms Endocrine: Reports: No Symptoms GI/Abdominal: Reports: No Symptoms : Reports: No Symptoms Musculoskeletal: Reports: No Symptoms Neurological: Reports: No Symptoms ED EXAM, GENERAL - Physical Exam Exam: See Below Exam Limited By: No Limitations General Appearance: Alert, No Apparent Distress Ears: Normal External Exam, Normal Canal, Hearing Grossly Normal, Normal TMs Nose: Normal Inspection, Normal Mucosa, No Blood Throat/Mouth: Normal Inspection, Normal Lips, Normal Gums, Normal Oropharynx, Normal Voice, No Airway Compromise Head: Atraumatic, Normocephalic Neck: Normal Inspection, Supple, Non-Tender, Full Range of Motion. No: Lym phadenopathy (L), Lymphadenopathy (R) Respiratory/Chest: Decreased Breath Sounds, Wheezing (Expiratory wheezes few in the bases) Cardiovascular: Normal Peripheral Pulses, Regular Rate, Rhythm, No Murmur, Other (Trace pitting edema in the lower extremities) GI/Abdominal: Normal Bowel Sounds, Soft, Non-Tender Back Exam: Normal Inspection Extremities: Normal Inspection, Other (Trace pitting edema in the lower extremities) Neurological: Alert, Oriented, Normal Cognition Course - Vital Signs Last Recorded V/S: Last Vital Signs Temp 36.1 C 03/09/20 00:52 Pulse 107 H 03/09/20 00:52 Resp 20 03/09/20 00:52 BP 138/72 03/09/20 00:52 Pulse Ox 90 L 03/09/20 02:37 - Orders/Labs/Meds Orders: Active Orders 24 hr Category Date Time Status EKG Documentation Completion [RC] STAT Care 03/09/20 01:21 Active RT Aerosol Therapy [RC] ASDIRECTED Care 03/09/20 02:04 Active RT Aerosol Therapy [RC] ASDIRECTED Care 03/09/20 02:37 Active Ang Chest [CT] Stat Exams 03/09/20 04:12 Taken Chest 1V Frontal [CR] Stat Exams 03/09/20 01:22 Taken CULTURE BLOOD [BC] Stat Lab 03/09/20 05:27 Ordered CULTURE BLOOD [BC] Stat Lab 03/09/20 05:27 Ordered Sodium Chloride 0.9% [Normal Saline] 100 ml Med 03/09/20 04:30 Active IV ASDIRECTED cefTRIAXone [Rocephin] 2 gm Med 03/09/20 05:32 Ordered Sodium Chloride 0.9% [Normal Saline] 100 ml IV ONETIME Blood Culture x2 Reflex Set [OM.PC] Stat Oth 03/09/20 05:27 Ordered Medication Orders Sodium Chloride (Normal Saline) 100 mls @ 60 drops/min IV ASDIRECTED MARIKA Last Admin: 03/09/20 04:54 Dose: 60 drops/min Documented by: ONEIGIN Ceftriaxone Sodium 2 gm/ (Sodium Chloride) 100 mls @ 200 mls/hr IV ONETIME ONE Stop: 03/09/20 06:01 Labs: Laboratory Tests 03/09/20 03/09/20 03/09/20 Range/Units 00:55 00:55 00:55 WBC 8.26 (4.23-9.07) K/mm3 RBC 5.06 (4.63-6.08) M/mm3 Hgb 15.2 (13.7-17.5) gm/dl Hct 48.1 (40.1-51.0) % MCV 95.1 H (79.0-92.2) fl MCH 30.0 (25.7-32.2) pg MCHC 31.6 L (32.2-35.5) g/dl RDW Std Deviation 46.1 H (35.1-43.9) fL Plt Count 184 (163-337) K/mm3 MPV 9.3 L (9.4-12.3) fl Neut % (Auto) 70.7 H (34.0-67.9) % Lymph % (Auto) 15.4 L (21.8-53.1) % [place] % (Auto) 12.1 (5.3-12.2) % Eos % (Auto) 1.2 (0.8-7.0) Baso % (Auto) 0.4 (0.1-1.2) % Neut # (Auto) 5.84 H (1.78-5.38) K/mm3 Lymph # (Auto) 1.27 L (1.32-3.57) K/mm3 [place]ergus # (Auto) 1.00 H (0.30-0.82) K/mm3 Eos # (Auto) 0.10 (0.04-0.54) K/mm3 Baso # (Auto) 0.03 (0.01-0.08) K/mm3 PT 11.4 (9.7-12.0) SECONDS INR 1.07 APTT 29.9 (21.7-31.4) SECONDS Sodium 133 L (136-145) mEq/L Potassium 4.1 (3.5-5.1) mEq/L Chloride 93 L (98-107) mEq/L Carbon Dioxide 38 H (21-32) mEq/L Anion Gap 6.1 (5-15) BUN 8 (7-18) mg/dL Creatinine 0.6 L (0.7-1.3) mg/dL Est Cr Clr Drug Dosing 148.83 mL/min Estimated GFR (MDRD) > 60 (>60) mL/min BUN/Creatinine Ratio 13.3 L (14-18) Glucose 124 H (74-106) mg/dL Calcium 8.8 (8.5-10.1) mg/dL Total Bilirubin 0.4 (0.2-1.0) mg/dL AST 16 (15-37) U/L ALT 21 (16-63) U/L Alkaline Phosphatase 86 (46-116) U/L Troponin I < 0.017 (0.00-0.056) ng/mL Total Protein 7.3 (6.4-8.2) g/dl Albumin 3.6 (3.4-5.0) g/dl Globulin 3.7 gm/dL Albumin/Globulin Ratio 1.0 (1-2) Meds: Medications Generic Name Dose Route Start Last Admin Trade Name Freq PRN Reason Stop Dose Admin Sodium Chloride 100 mls @ 60 drops/min 03/09/20 04:30 03/09/20 04:54 Normal Saline IV 60 drops/min ASDIRECTED MARIKA Administration Ceftriaxone Sodium 2 gm/ 100 mls @ 200 mls/hr 03/09/20 05:32 Sodium Chloride IV 03/09/20 06:01 ONETIME ONE Discontinued Medications Generic Name Dose Route Start Last Admin Trade Name Freq PRN Reason Stop Dose Admin Albuterol/Ipratropium 3 ml 03/09/20 02:04 03/09/20 02:10 Duoneb 3.0-0.5 Mg/3 Ml NEB 03/09/20 02:05 3 ml ONETIME ONE Administration Albuterol/Ipratropium 3 ml 03/09/20 02:37 03/09/20 03:02 Duoneb 3.0-0.5 Mg/3 Ml NEB 03/09/20 02:38 3 ml ONETIME ONE Administration Azithromycin 500 mg 03/09/20 05:32 Zithromax PO 03/09/20 05:33 ONETIME ONE Iopamidol 100 ml 03/09/20 04:17 03/09/20 04:54 Isovue-370 (76%) IVPUSH 03/09/20 04:18 100 ml ONETIME ONE Administration Methylprednisolone Sodium Succinate 125 mg 03/09/20 01:21 03/09/20 01:28 Solu-Medrol IVPUSH 03/09/20 01:22 125 mg ONETIME ONE Administration - Re-Assessments/Exams Free Text/Narrative Re-Assessment/Exam: 03/09/20 05:37 Laboratory evaluations nondiagnostic he has some abnormalities in his RBC indices. Patient required a little more than normal oxygen while being here and it appears that this home CPAP machine may not be functioning correctly. Chest x-ray shows some atelectasis versus infiltrate in the costophrenic angles worse on the right compared to the left with his persistent tachypnea I went ahead and check a CTA worried about a PE this was negative for PE but did show some atelectasis versus infiltrates in both lung bases. There was an 11 mm nodule in the left upper lobe this is stable since his prior study about a month ago was noted it is recommended this nodule has follow-up at 3 months 9 months in 24 not also consideration should be given for contrast-enhanced CT PET scan and/or biopsy if clinically warranted. I have recommended hospitalization with his increased oxygen demand the developing pneumonia patient declines this option and is insistent on going home. I have ordered blood cultures and initial doses of antibiotics will be started on Rocephin and Zithromax here in the hospital as an outpatient we will continue Zithromax and will start Ceftin. Departure - Departure Time of Disposition: 05:40 Disposition: Home, Self-Care 01 Clinical Impression: Pneumonia, Hypoxemia, COPD exacerbation COPD (chronic obstructive pulmonary disease) Qualifiers: COPD type: unspecified COPD Qualified Code(s): J44.9 - Chronic obstructive pulmonary disease, unspecified - Discharge Information Referrals: Matilda Mitchell NP [Primary Care Provider] - Forms: ED Department Discharge Additional Instructions: Return to the emergency room with any questions problems or worsening symptoms. Follow-up with your regular healthcare provider in the next couple of days for recheck for this possible pneumonia shortness of breath and increased oxygen demand. Also talked to him about follow-up on your chest CT there is a nodule in the left upper lobe that should have some follow-up at 3 months, 9 months, and 24 months. They recommend follow-up contrast enhanced CTs or PET scan or possibly biopsy. The lung specialist you will see coming up can access the CT scan report as well. Follow-up with your CPAP supply source and have your home CPAP machine checked for proper function. And possible recalibration. You have been started on 3 medications the first from the Zithromax this is an antibiotic you take every morning starting Monday morning until all gone. The second is also an antibiotic Ceftin, or cefuroxime take this twice daily until all gone starting Monday morning. The third medication is prednisone this will be a taper take as directed. The prednisone. Start MondayMarch 10, take 3 every morning x3 days, then 2 every morning x3 days, then 1 every morning x3 days, then one half every morning x4 days. Sepsis Event Note (ED) - Evaluation Sepsis Screening Result: No Definite Risk - Focused Exam Vital Signs: Vital Signs Temp Pulse Resp BP Pulse Ox Pulse Ox 03/09/20 02:37 90 L 03/09/20 02:04 93 L 03/09/20 00:52 36.1 C 107 H 20 138/72 83 L - My Orders Last 24 Hours: My Active Orders 03/09/20 01:21 EKG Documentation Completion [RC] STAT 03/09/20 01:22 Chest 1V Frontal [CR] Stat 03/09/20 02:04 RT Aerosol Therapy [RC] ASDIRECTED 03/09/20 02:37 RT Aerosol Therapy [RC] ASDIRECTED 03/09/20 04:12 Ang Chest [CT] Stat 03/09/20 04:30 Sodium Chloride 0.9% [Normal Saline] 100 ml IV ASDIRECTED 03/09/20 05:27 CULTURE BLOOD [BC] Stat CULTURE BLOOD [BC] Stat Blood Culture x2 Reflex Set [OM.PC] Stat 03/09/20 05:32 cefTRIAXone [Rocephin] 2 gm Sodium Chloride 0.9% [Normal Saline] 100 ml IV O NETIME - Assessment/Plan Last 24 Hours: My Active Orders 03/09/20 01:21 EKG Documentation Completion [RC] STAT 03/09/20 01:22 Chest 1V Frontal [CR] Stat 03/09/20 02:04 RT Aerosol Therapy [RC] ASDIRECTED 03/09/20 02:37 RT Aerosol Therapy [RC] ASDIRECTED 03/09/20 04:12 Ang Chest [CT] Stat 03/09/20 04:30 Sodium Chloride 0.9% [Normal Saline] 100 ml IV ASDIRECTED 03/09/20 05:27 CULTURE BLOOD [BC] Stat CULTURE BLOOD [BC] Stat Blood Culture x2 Reflex Set [OM.PC] Stat 03/09/20 05:32 cefTRIAXone [Rocephin] 2 gm Sodium Chloride 0.9% [Normal Saline] 100 ml IV ONETIME
[2020-03-09] MEDS ORDERED: methylPREDNISolone Sodium Succinate 125 MG/2 ML SDV IVPUSH ONE (01:21)
[2020-03-09] MEDS ORDERED: Albuterol/Ipratropium 3.0-0.5 MG/3 ML Neb Soln NEB ONE ×2 (02:04→02:37)
[2020-03-09] MEDS ORDERED: Iopamidol 755 Mg/ML 100 ML Bottle IVPUSH ONE (04:17)
[2020-03-09] MEDS ORDERED: Sodium Chloride 0.9% 100 ML IV SCH (04:30)
[2020-03-09] MEDS ORDERED: cefTRIAXone 2 GM in Sodium Chloride 0.9% 100 ML IV ONE (05:32)
[2020-03-09] MEDS ORDERED: Azithromycin 250 MG Tab PO ONE (05:32)
--- NOTE | 2020-03-09 10:05 | CT ---
CT chest Technique: Multiple axial sections were obtained through the chest. Intravenous contrast was utilized. Study has been performed as a pulmonary angiogram protocol. Comparison: Prior chest CT study performed on 01/26/20. Findings: Pulmonary arteries are not optimally opacified. No filling defects are seen within the main or segmental branches. Smaller subsegmental pulmonary emboli could be missed. Aorta shows no aneurysm with atherosclerotic change. Coronary artery calcification is noted. No pericardial thickening is identified. Mediastinum shows no adenopathy. No axillary adenopathy is seen. No pericardial thickening is identified. Small portion of the visualized upper abdominal structures show no discrete abnormality. Lung window setting shows diffuse emphysematous change. 9 mm nodule is noted within the superior left upper lung. This is believed to be stable from prior exam. Mild areas of increased density are seen within both lower lungs. Differential includes atelectasis and/or possible pneumonia. Minimal densities are noted within the lingula and right middle lobe most likely due to areas of atelectasis. No pleural effusions are seen. Bone window settings were reviewed which show mild degenerative change within the thoracic spine. Nothing acute is appreciated within the osseous structures. Impression: 1. Pulmonary arteries are not optimally opacified. No discrete filling defects are seen within the main or segmental branches. Smaller subsegmental pulmonary emboli could be missed. 2. 9 mm nodule within the left upper chest. This remains stable from previous study of 02/05/20. Recommend repeat chest CT without contrast in 6 months. 3. Areas of increased density within both lung bases. This may represent an area of atelectasis and/or pneumonia. Please correlate with the patient's symptoms. Slight areas of atelectasis are noted within the right middle lobe and lingula. Diagnostic code #9 Slight disagree with preliminary report from ad, finalized on 03/09/20, 6:08 AM [employer]
--- NOTE | 2020-03-09 10:14 | CR ---
Chest: Portable view of the chest was obtained. Comparison: Prior chest x-ray of 02/10/20. Slight increased density above both hemidiaphragms are noted. Lungs otherwise are clear. Heart size is normal for portable technique. Upper mediastinum is normal. Bony structures are grossly intact. Impression: 1. Slight increased density within both lung bases adjacent to the hemidiaphragms. Differential includes atelectasis as well as possible pneumonia. 2. Nothing acute is otherwise seen on portable chest x-ray. Diagnostic code #3
== END 2020-03-09 06:45 | disposition home or self-care (01) ==
LOC: JD.ED 00:49
DX: J44.1 Chronic obstructive pulmonary disease with (acute) exacerbation (principal); J18.9 Pneumonia, unspecified organism; R09.02 Hypoxemia; E78.00 Pure hypercholesterolemia, unspecified; I10 Essential (primary) hypertension; E66.9 Obesity, unspecified; Z68.22 Body mass index [BMI] 22.0-22.9, adult; Z79.899 Other long term (current) drug therapy
CPT/HCPCS: 36415; 71045; 71275; 80053; 84484; 85025; 85610; 85730; 87040; 93005; 94640; 94660; 96365; 96375; 99285; A9270; J0696; J2930; Q9967; 93010; 99284; J7620-GY

== ENCOUNTER 2020-03-14 23:20 | Emergency (ER) | payer BC ==
[2020-03-14] MEDS ORDERED: Lactated Ringers 1,000 ML IV SCH (23:45)
[2020-03-14] MEDS ORDERED: fentaNYL 2,500 MCG in Sodium Chloride 0.9% 200 ML IV SCH ×4 (23:45)
--- NOTE | 2020-03-14 23:52 | EDM.PDOC ---
ED HPI GENERAL MEDICAL PROBLEM - General Chief Complaint: Respiratory Problem Stated Complaint: [facility] ambulance Time Seen by Provider: 03/14/20 23:28 Source of Information: Reports: EMS, EMS Notes Reviewed, Family History Limitations: Reports: Altered Mental Status, Other (The patient is intubated) - History of Present Illness INITIAL COMMENTS - FREE TEXT/NARRATIVE: This is a 59-year-old male. He was in the hospital for exacerbation of COPD in February of this year. He was released and then came back to the ER on 09 March was diagnosed by way of angio chest CT with a possible pneumonia and placed on a Z-Leonard and sent home. He is a known individual with severe COPD and frequent exacerbations. He is on CPAP at night and oftentimes during the day he is on 3 L/min of oxygen by way of nasal cannula. Apparently after he was sent home with a Z-Leonard he has been having these coughing spells any kind he gags because the phlegm is very thick and he cannot get it up. According to the this evening he called her because he needed some water because he was kind of gagging from his phlegm when she went in the room to hand him the water he knocked the water out of her hand she talked to him he flopped back into the bed and was unresponsive. She attempted to put his CPAP on but was not able to and that she called 911 and the ambulance crew came. While the ambulance on the way she noted that his heart continued to beat he did not appear to be purple he appeared to be breathing but he was not responsive. When the ambulance crew arrived they noted a pulse ox of 55 and that he was having a difficult time breathing. They gave him 0.25 mg of terbutaline. As he was not responding they went ahead and did rapid sedation intubation. They gave him 20 mg etomidate 160 of succinylcholine 100 of fentanyl and 2 of Versed. They were able to successfully intubate him with a #[address] to the ER they gave him an additional 50 fentanyl and 2 of Versed and also 125 mg of Solu-Medrol. Once he was intubated his pulse ox went up to 99% on 100%. - Related Data Allergies Allergy/AdvReac Type Severity Reaction Status Date / Time No Known Allergies Allergy Verified 03/09/20 00:56 Home Meds: Home Meds Quinapril [Accupril] 10 mg PO DAILY 02/10/20 [History] amLODIPine [Norvasc] 5 mg PO DAILY 02/10/20 [History] atorvaSTATin [Lipitor] 10 mg PO BEDTIME 02/10/20 [History] predniSONE [Prednisone] 50 mg PO DAILY #7 tablet 02/11/20 [Rx] Azithromycin 250 mg PO DAILY #4 tablet 03/09/20 [Rx] Cefuroxime Axetil [Ceftin] 500 mg PO BID #12 tablet 03/09/20 [Rx] predniSONE 20 mg PO ASDIRECTED #20 tab 03/09/20 [Rx] Past Medical History HEENT History: Reports: Hard of Hearing, Impaired Vision Cardiovascular History: Reports: High Cholesterol, Hypertension Respiratory History: Reports: Bronchitis, Recurrent, COPD, Pneumonia, Recurrent, Sleep Apnea, SOB Gastrointestinal History: Reports: GERD Endocrine/Metabolic History: Reports: Obesity/BMI 30+ - Past Surgical History HEENT Surgical History: Reports: Other (See Below) Other HEENT Surgeries/Procedures: removed benign mass from neck in October 2019 Cardiovascular Surgical History: Reports: None Respiratory Surgical History: Reports: None GI Surgical History: Reports: None Endocrine Surgical History: Reports: None Social & Family History - Family History Cardiac: Reports: [place] Other Cardiac Family History: Father of [place] - Caffeine Use Caffeine Use: Reports: Coffee, Soda Other Caffeine Use: 2 cups a day ED ROS GENERAL - Review of Systems Review Of Systems: Comprehensive ROS is negative, except as noted in HPI. Reason Not Obtained: You have systems was essentially from the and the HPI Constitutional: Denies: Fever, Chills HEENT: Reports: Rhinitis Respiratory: Reports: Shortness of Breath, Wheezing, Cough, Sputum Cardiovascular: Denies: Chest Pain GI/Abdominal: Denies: Abdominal Pain, Nausea, Vomiting ED EXAM, GENERAL - Physical Exam Exam: See Below Exam Limited By: Other (The patient is intubated) General Appearance: Other (Patient is obtunded secondary to rapid sequence intubation and medications) Eye Exam: Bilateral Eye: Other (Pupils are pinpoint, they are nonreactive, anterior chambers are clear) Ears: Normal External Exam, Normal Canal, Normal TMs Nose: Normal Inspection, Clear Rhinorrhea Throat/Mouth: Other (The patient is intubated with a #7 tube it is 24 at the teeth) Head: Normocephalic Neck: Supple Respiratory/Chest: Other (Breath sounds appear to be equal bilaterally both anterior and posterior, occasional expiratory wheezes noted) Cardiovascular: Regular Rate, Rhythm, No Murmur, Tachycardia GI/Abdominal: Soft, Other (Umbilical hernia noted, no obvious trauma to the abdomen it is soft and does not appear to be distended though he is obese.) Back Exam: Normal Inspection Extremities: Normal Inspection Neurological: Other (The patient is unresponsive secondary to medications and intubation) Skin Exam: Warm, Dry #1 Interpretation EKG Date: 03/15/20 Time: 11:50 EKG Interpretation Comments: EKG shows a sinus rhythm rate of 82, there are no acute ST or T wave changes and there is no ischemia noted. Course - Vital Signs Last Recorded V/S: Last Vital Signs Temp 96.3 F L 03/14/20 23:32 Pulse 106 H 03/14/20 23:32 Resp 17 03/14/20 23:32 BP 95/47 L 03/14/20 23:32 Pulse Ox 100 03/14/20 23:32 - Orders/Labs/Meds Orders: Active Orders 24 hr Category Date Time Status ABG [RT Arterial Blood Gases, ABG] [RC] Click to Edit Care 03/14/20 23:28 Active EKG 12 Lead [EKG Documentation Completion] [RC] STAT Care 03/14/20 23:33 Active Olivas Catheter Insertion [Insert Urinary Catheter] [OM. Care 03/14/20 23:45 Ordered PC] Q24H Gastrointestinal Tube Mgmt [RC] ASDIRECTED Care 03/15/20 00:07 Active RT Ventilator, Adult [RC] ASDIRECTED Care 03/14/20 23:55 Active Urinary Catheter Assessment [RC] ASDIRECTED Care 03/14/20 23:39 Active CXR [Chest 1V Frontal] [CR] Stat Exams 03/14/20 23:38 Taken CULTURE BLOOD [BC] Stat Lab 03/14/20 23:32 Received CULTURE BLOOD [BC] Stat Lab 03/14/20 23:36 Received Lactated Ringers [Ringers, Lactated] 1,000 ml Med 03/14/20 23:45 Active IV ASDIRECTED Sodium Chloride 0.9% [Normal Saline] 1,000 ml Med 03/15/20 00:44 Active IV ONETIME fentaNYL [Sublimaze] 2,500 mcg Med 03/14/20 23:45 Active Sodium Chloride 0.9% [Normal Saline] 200 ml IV TITRATE Blood Culture x2 Reflex Set [OM.PC] Stat Oth 03/14/20 23:33 Ordered Medication Orders Fentanyl 2,500 mcg/ Sodium (Chloride) 250 mls @ 11.59 mls/hr IV TITRATE MARIKA; Protocol Last Titration: 03/15/20 00:28 Dose: 1.73 mcg/kg/hr, 20 mls/hr Documented by: Admin: 03/15/20 00:17 Dose: 1 mcg/kg/hr, 11.59 mls/hr Documented by: SUYAPA Lactated Ringer's (Ringers, Lactated) 1,000 mls @ 500 mls/hr IV ASDIRECTED MARIKA Last Admin: 03/14/20 23:55 Dose: 500 mls/hr Documented by: SUYAPA Sodium Chloride (Normal Saline) 1,000 mls @ 999 mls/hr IV ONETIME ONE Stop: 03/15/20 01:44 Last Admin: 03/15/20 00:45 Dose: 999 mls/hr Documented by: SUYAPA Labs: Laboratory Tests 03/14/20 03/14/20 03/14/20 Range/Units 23:32 23:35 23:36 WBC 7.62 (4.23-9.07) K/mm3 RBC 5.03 (4.63-6.08) M/mm3 Hgb 14.9 (13.7-17.5) gm/dl Hct 49.3 (40.1-51.0) % MCV 98.0 H (79.0-92.2) fl MCH 29.6 (25.7-32.2) pg MCHC 30.2 L (32.2-35.5) g/dl RDW Std Deviation 50.6 H (35.1-43.9) fL Plt Count 228 (163-337) K/mm3 MPV 9.5 (9.4-12.3) fl Neut % (Auto) 56.3 (34.0-67.9) % Lymph % (Auto) 34.6 (21.8-53.1) % [place] % (Auto) 7.0 (5.3-12.2) % Eos % (Auto) 1.4 (0.8-7.0) Baso % (Auto) 0.3 (0.1-1.2) % Neut # (Auto) 4.29 (1.78-5.38) K/mm3 Lymph # (Auto) 2.64 (1.32-3.57) K/mm3 [place] # (Auto) 0.53 (0.30-0.82) K/mm3 Eos # (Auto) 0.11 (0.04-0.54) K/mm3 Baso # (Auto) 0.02 (0.01-0.08) K/mm3 Puncture Site Rt radial ABG pH 7.28 L (7.35-7.45) ABG pCO2 77.6 H* (35.0-45.0) mmHg ABG pO2 366.0 H* (80.0-100.0) mmHg ABG HCO3 35.5 H (22.0-26.0) meq/L ABG O2 Saturation 99.8 H (96.0-97.0) % ABG Base Excess 6.2 H (-2-2.0) A-a Gradient 250 mmHg O2 Delivery Device Ambu bag Oxygen Flow Rate 15.0 FiO2 100.00 (21.00-100.00) % Tidal Volume cc PEEP cmH20 Sodium 142 (136-145) mEq/L Potassium 3.7 (3.5-5.1) mEq/L Chloride 99 (98-107) mEq/L Carbon Dioxide 36 H (21-32) mEq/L Anion Gap 10.7 (5-15) BUN 10 (7-18) mg/dL Creatinine 1.0 (0.7-1.3) mg/dL Est Cr Clr Drug Dosing TNP Estimated GFR (MDRD) > 60 (>60) mL/min BUN/Creatinine Ratio 10.0 L (14-18) Glucose 237 H (74-106) mg/dL Lactic Acid (0.4-2.0) mmol/L Calcium 8.4 L (8.5-10.1) mg/dL Total Bilirubin 0.4 (0.2-1.0) mg/dL AST 69 H (15-37) U/L ALT 45 (16-63) U/L Alkaline Phosphatase 66 (46-116) U/L Troponin I < 0.017 (0.00-0.056) ng/mL C-Reactive Protein <0.2 (<1.0) mg/dL NT-Pro-B Natriuret Pep (0-125) pg/mL Total Protein 6.2 L (6.4-8.2) g/dl Albumin 3.3 L (3.4-5.0) g/dl Globulin 2.9 gm/dL Albumin/Globulin Ratio 1.1 (1-2) Urine Color (Yellow) Urine Appearance (Clear) Urine pH (5.0-8.0) Ur Specific [place] (1.005-1.030) Urine Protein (Negative) Urine Glucose (UA) (Negative) Urine Ketones (Negative) Urine Occult Blood (Negative) Urine Nitrite (Negative) Urine Bilirubin (Negative) Urine Urobilinogen (0.2-1.0) Ur Leukocyte Esterase (Negative) U Hyaline Cast (Auto) (0-5) /lpf Urine RBC (0-5) /hpf Urine WBC (0-5) /hpf Ur Squamous Epith Cells (0-5) /hpf Amorphous Sediment (NOT SEEN) /hpf Urine Bacteria (FEW) /hpf Urine Mucus (FEW) /hpf SARS-CoV-2 RNA (SHANNEN) (NEGATIVE) 03/14/20 03/14/20 03/14/20 Range/Units 23:36 23:36 23:39 WBC (4.23-9.07) K/mm3 RBC (4.63-6.08) M/mm3 Hgb (13.7-17.5) gm/dl Hct (40.1-51.0) % MCV (79.0-92.2) fl MCH (25.7-32.2) pg MCHC (32.2-35.5) g/dl RDW Std Deviation (35.1-43.9) fL Plt Count (163-337) K/mm3 MPV (9.4-12.3) fl Neut % (Auto) (34.0-67.9) % Lymph % (Auto) (21.8-53.1) % [place] % (Auto) (5.3-12.2) % Eos % (Auto) (0.8-7.0) Baso % (Auto) (0.1-1.2) % Neut # (Auto) (1.78-5.38) K/mm3 Lymph # (Auto) (1.32-3.57) K/mm3 [place] # (Auto) (0.30-0.82) K/mm3 Eos # (Auto) (0.04-0.54) K/mm3 Baso # (Auto) (0.01-0.08) K/mm3 Puncture Site ABG pH (7.35-7.45) ABG pCO2 (35.0-45.0) mmHg ABG pO2 (80.0-100.0) mmHg ABG HCO3 (22.0-26.0) meq/L ABG O2 Saturation (96.0-97.0) % ABG Base Excess (-2-2.0) A-a Gradient mmHg O2 Delivery Device Oxygen Flow Rate FiO2 (21.00-100.00) % Tidal Volume cc PEEP cmH20 Sodium (136-145) mEq/L Potassium (3.5-5.1) mEq/L Chloride (98-107) mEq/L Carbon Dioxide (21-32) mEq/L Anion Gap (5-15) BUN (7-18) mg/dL Creatinine (0.7-1.3) mg/dL Est Cr Clr Drug Dosing Estimated GFR (MDRD) (>60) mL/min BUN/Creatinine Ratio (14-18) Glucose (74-106) mg/dL Lactic Acid 2.9 H* (0.4-2.0) mmol/L Calcium (8.5-10.1) mg/dL Total Bilirubin (0.2-1.0) mg/dL AST (15-37) U/L ALT (16-63) U/L Alkaline Phosphatase (46-116) U/L Troponin I (0.00-0.056) ng/mL C-Reactive Protein (<1.0) mg/dL NT-Pro-B Natriuret Pep 260 H (0-125) pg/mL Total Protein (6.4-8.2) g/dl Albumin (3.4-5.0) g/dl Globulin gm/dL Albumin/Globulin Ratio (1-2) Urine Color Yellow (Yellow) Urine Appearance Clear (Clear) Urine pH 7.0 (5.0-8.0) Ur Specific [place] 1.015 (1.005-1.030) Urine Protein 2+ H (Negative) Urine Glucose (UA) Trace H (Negative) Urine Ketones Negative (Negative) Urine Occult Blood Negative (Negative) Urine Nitrite Negative (Negative) Urine Bilirubin Negative (Negative) Urine Urobilinogen 0.2 (0.2-1.0) Ur Leukocyte Esterase Negative (Negative) U Hyaline Cast (Auto) 5-10 H (0-5) /lpf Urine RBC Not seen (0-5) /hpf Urine WBC Not seen (0-5) /hpf Ur Squamous Epith Cells 0-5 (0-5) /hpf Amorphous Sediment Few H (NOT SEEN) /hpf Urine Bacteria Few (FEW) /hpf Urine Mucus Few (FEW) /hpf SARS-CoV-2 RNA (SHANNEN) (NEGATIVE) 03/15/20 03/15/20 Range/Units 00:00 00:20 WBC (4.23-9.07) K/mm3 RBC (4.63-6.08) M/mm3 Hgb (13.7-17.5) gm/dl Hct (40.1-51.0) % MCV (79.0-92.2) fl MCH (25.7-32.2) pg MCHC (32.2-35.5) g/dl RDW Std Deviation (35.1-43.9) fL Plt Count (163-337) K/mm3 MPV (9.4-12.3) fl Neut % (Auto) (34.0-67.9) % Lymph % (Auto) (21.8-53.1) % [place] % (Auto) (5.3-12.2) % Eos % (Auto) (0.8-7.0) Baso % (Auto) (0.1-1.2) % Neut # (Auto) (1.78-5.38) K/mm3 Lymph # (Auto) (1.32-3.57) K/mm3 [place] # (Auto) (0.30-0.82) K/mm3 Eos # (Auto) (0.04-0.54) K/mm3 Baso # (Auto) (0.01-0.08) K/mm3 Puncture Site Rt radial ABG pH 7.29 L (7.35-7.45) ABG pCO2 79.0 H* (35.0-45.0) mmHg ABG pO2 72.0 L (80.0-100.0) mmHg ABG HCO3 37 H (22.0-26.0) meq/L ABG O2 Saturation 91.6 L (96.0-97.0) % ABG Base Excess 7.7 H (-2-2.0) A-a Gradient 185 mmHg O2 Delivery Device Ventilator Oxygen Flow Rate FiO2 50.00 (21.00-100.00) % Tidal Volume 500.0 cc PEEP 5.0 cmH20 Sodium (136-145) mEq/L Potassium (3.5-5.1) mEq/L Chloride (98-107) mEq/L Carbon Dioxide (21-32) mEq/L Anion Gap (5-15) BUN (7-18) mg/dL Creatinine (0.7-1.3) mg/dL Est Cr Clr Drug Dosing Estimated GFR (MDRD) (>60) mL/min BUN/Creatinine Ratio (14-18) Glucose (74-106) mg/dL Lactic Acid (0.4-2.0) mmol/L Calcium (8.5-10.1) mg/dL Total Bilirubin (0.2-1.0) mg/dL AST (15-37) U/L ALT (16-63) U/L Alkaline Phosphatase (46-116) U/L Troponin I (0.00-0.056) ng/mL C-Reactive Protein (<1.0) mg/dL NT-Pro-B Natriuret Pep (0-125) pg/mL Total Protein (6.4-8.2) g/dl Albumin (3.4-5.0) g/dl Globulin gm/dL Albumin/Globulin Ratio (1-2) Urine Color (Yellow) Urine Appearance (Clear) Urine pH (5.0-8.0) Ur Specific [place] (1.005-1.030) Urine Protein (Negative) Urine Glucose (UA) (Negative) Urine Ketones (Negative) Urine Occult Blood (Negative) Urine Nitrite (Negative) Urine Bilirubin (Negative) Urine Urobilinogen (0.2-1.0) Ur Leukocyte Esterase (Negative) U Hyaline Cast (Auto) (0-5) /lpf Urine RBC (0-5) /hpf Urine WBC (0-5) /hpf Ur Squamous Epith Cells (0-5) /hpf Amorphous Sediment (NOT SEEN) /hpf Urine Bacteria (FEW) /hpf Urine Mucus (FEW) /hpf SARS-CoV-2 RNA (SHANNEN) Negative (NEGATIVE) Meds: Medications Generic Name Dose Route Start Last Admin Trade Name Jessi PRN Reason Stop Dose Admin Fentanyl 2,500 mcg/ Sodium 250 mls @ 11.59 mls/hr 03/14/20 23:45 03/15/20 00:28 Chloride IV 1.73 mcg/kg/hr TITRATE MARIKA 20 mls/hr Titration Protocol 1 MCG/KG/HR Lactated Ringer's 1,000 mls @ 500 mls/hr 03/14/20 23:45 03/14/20 23:55 Ringers, Lactated IV 500 mls/hr ASDIRECTED MARIKA Administration Sodium Chloride 1,000 mls @ 999 mls/hr 03/15/20 00:44 03/15/20 00:45 Normal Saline IV 03/15/20 01:44 999 mls/hr ONETIME ONE Administration Discontinued Medications Generic Name Dose Route Start Last Admin Trade Name Jessi PRN Reason Stop Dose Admin Fentanyl 100 mcg 03/15/20 00:05 03/15/20 00:17 Sublimaze IVPUSH 03/15/20 00:06 100 mcg ONETIME ONE Administration Fentanyl 2,500 mcg/ Sodium 250 mls @ 0 mls/hr 03/14/20 23:45 Chloride IV TITRATE MARIKA Protocol 1 MCG/KG/HR Ceftriaxone Sodium 2 gm/ 100 mls @ 200 mls/hr 03/15/20 00:15 03/15/20 00:22 Sodium Chloride IV 03/15/20 00:44 200 mls/hr ONETIME ONE Administration Azithromycin 500 mg/ Sodium 250 mls @ 250 mls/hr 03/15/20 00:15 03/15/20 00:22 Chloride IV 03/15/20 01:14 250 mls/hr ONETIME ONE Administration Midazolam HCl 3 mg 03/15/20 00:03 03/15/20 00:17 Versed 1 Mg/Ml IVPUSH 03/15/20 00:04 3 mg ONETIME ONE Administration Rocuronium [place] 100 mg 03/15/20 00:05 03/15/20 00:18 Zemuron IVPUSH 03/15/20 00:06 100 mg ONETIME ONE Administration Rocuronium [place] 100 mg 03/15/20 00:30 03/15/20 00:31 Zemuron IVPUSH 03/15/20 00:31 100 mg ONETIME ONE Administration Rocuronium [place]ia Confirm 03/15/20 00:31 02 00:44 Zemuron Administered 03/15/20 00:32 Not Given Dose 100 mg .ROUTE .STK-MED ONE Rocuronium Venetia Confirm 03/15/20 01:07 Zemuron Administered 03/15/20 01:08 Dose 100 mg .ROUTE .STK-MED ONE - Radiology Interpretation Free Text/Narrative:: This x-ray shows ET tube to be situated in the trachea but it is high up. He appears to be some infiltrates in the right lower lobe and possibly some scattered infiltrates in the left lobe. - Re-Assessments/Exams Free Text/Narrative Re-Assessment/Exam: 03/14/20 23:59 The ET tube is slightly higher than I would like it however is 24 at the teeth and we do not have much room to advance it so I am going to leave it where it is. His blood gas shows a pH of 7.28 CO2 of 77 and O2 of 366. We are going to put him on a vent rate of 16 and back the O2 off to 50% and repeat the blood gas in 20 to 30 minutes. He has been stable the entire time he has been here his blood pressure has been running in the high 90s systolic pulse is 83 pulse ox is still 100%. The patient has been dated adequately and I am in a place him on a fentanyl drip. 03/15/20 00:01 Speak with the indicating that he is stable at this time and that he is sedated. Once we get him situated we will have her come back and be with him. 03/15/20 00:38 Patient has been stable since he has been here and with fluids his systolic blood pressure is going up to 108. Second blood gas was a pH of 7.29 a CO2 of 79 and O2 of 72. We will increase his rate to 18 breaths/min and increase his oxygen at 60 %. 03/15/20 00:[address] Correa is the ICU stencil printer at [facility]. He agrees to accept the patient in transport for further evaluation and treatment. Will transport the patient by ambulance since we have a experience crew and the patient appears to be stable. We will continue with fluids to support his blood pressure. 03/15/20 00:44 The x-rays were pushed down to [facility]. 03/15/20 01:12 The patient was transferred over to the ambulance stretcher and all the gear was moved. He continued to have good bilateral breath sounds on the portable vent. 03/15/20 01:18 Patient has left the ER being transported down to [facility]. He is intubated and sedated his vital signs are good his blood pressure is in the high 90s. They were instructed to give him rocuronium IV if needed and the 100 mg were given to the ambulance medic if they needed it. The patient was stable at the time of departure. He was explained to the as far as medications and intubation and his transfer to [facility]. She is going by a separate car down to [facility] with her daughter. 03/15/20 01:21 Critical care time for patient care was 96 minutes. Departure - Departure Time of Disposition: 00:42 Disposition: DC/Tfer to Acute Hospital 02 Condition: Poor Clinical Impression: Acute exacerbation of chronic obstructive pulmonary disease (COPD), Respiratory arrest, Intubation of airway performed without difficulty, CO2 retention, Hypoxemia Right lower lobe pneumonia Qualifiers: Pneumonia type: due to unspecified organism Qualified Code(s): J18.9 - Pneumonia, unspecified organism - Discharge Information Referrals: Matilda Mitchell NP [Primary Care Provider] - Sepsis Event Note (ED) - Evaluation Sepsis Screening Result: No Definite Risk - Focused Exam Vital Signs: Vital Signs Temp Pulse Resp BP Pulse Ox 03/14/20 23:32 96.3 F L 106 H 17 95/47 L 100 ED Communication - ED Communication Date/Time Date: 03/15/20 Time Called: 00:42 - Discussed Case With (1) Discussed Case With (1): Admitting Provider Person/s Notified (1): Dr. Correa (He agrees to accept the patient in transport for further evaluation and treatment) - My Orders Last 24 Hours: My Active Orders 03/14/20 23:28 ABG [RT Arterial Blood Gases, ABG] [RC] Click to Edit 03/14/20 23:32 CULTURE BLOOD [BC] Stat 03/14/20 23:33 EKG 12 Lead [EKG Documentation Completion] [RC] STAT Blood Culture x2 Reflex Set [OM.PC] Stat 03/14/20 23:36 CULTURE BLOOD [BC] Stat 03/14/20 23:38 CXR [Chest 1V Frontal] [CR] Stat 03/14/20 23:39 Urinary Catheter Assessment [RC] ASDIRECTED 03/14/20 23:45 Olivas Catheter Insertion [Insert Urinary Catheter] [OM.PC] Q24H Lactated Ringers [Ringers, Lactated] 1,000 ml IV ASDIRECTED fentaNYL [Sublimaze] 2,500 mcg Sodium Chloride 0.9% [Normal Saline] 200 ml IV TITRATE 03/14/20 23:55 RT Ventilator, Adult [RC] ASDIRECTED 03/15/20 00:07 Gastrointestinal Tube Mgmt [RC] ASDIRECTED 03/15/20 00:44 Sodium Chloride 0.9% [Normal Saline] 1,000 ml IV ONETIME - Assessment/Plan Last 24 Hours: My Active Orders 03/14/20 23:28 ABG [RT Arterial Blood Gases, ABG] [RC] Click to Edit 03/14/20 23:32 CULTURE BLOOD [BC] Stat 03/14/20 23:33 EKG 12 Lead [EKG Documentation Completion] [RC] STAT Blood Culture x2 Reflex Set [OM.PC] Stat 03/14/20 23:36 CULTURE BLOOD [BC] Stat 03/14/20 23:38 CXR [Chest 1V Frontal] [CR] Stat 03/14/20 23:39 Urinary Catheter Assessment [RC] ASDIRECTED 03/14/20 23:45 Olivas Catheter Insertion [Insert Urinary Catheter] [OM.PC] Q24H Lactated Ringers [Ringers, Lactated] 1,000 ml IV ASDIRECTED fentaNYL [Sublimaze] 2,500 mcg Sodium Chloride 0.9% [Normal Saline] 200 ml IV TITRATE 03/14/20 23:55 RT Ventilator, Adult [RC] ASDIRECTED 03/15/20 00:07 Gastrointestinal Tube Mgmt [RC] ASDIRECTED 03/15/20 00:44 Sodium Chloride 0.9% [Normal Saline] 1,000 ml IV ONETIME
[2020-03-15] MEDS ORDERED: Midazolam 1 MG/ML 5 ML SDV IVPUSH ONE (00:03)
[2020-03-15] MEDS ORDERED: Rocuronium 50 MG/5 ML Vial IVPUSH ONE ×2 (00:05→00:30)
[2020-03-15] MEDS ORDERED: fentaNYL 100 MCG/2 ML SDV IVPUSH ONE (00:05)
[2020-03-15] MEDS ORDERED: cefTRIAXone 2 GM in Sodium Chloride 0.9% 100 ML IV ONE (00:15)
[2020-03-15] MEDS ORDERED: Azithromycin 500 MG in Sodium Chloride 0.9% 250 ML IV ONE (00:15)
[2020-03-15] MEDS ORDERED: Rocuronium 50 MG/5 ML Vial ONE ×2 (00:31→01:07)
[2020-03-15] MEDS ORDERED: Sodium Chloride 0.9% 1,000 ML IV ONE (00:44)
--- NOTE | 2020-03-15 10:42 | CR ---
Chest: Portable supine view of the chest was obtained. Comparison: Prior chest imaging of 03/09/20. Lung markings are slightly increased. Findings are questionably increased from prior study. Minimal atelectasis within the left lung base is seen. Lungs otherwise are clear. Heart size is normal for portable technique. Upper mediastinum is stable. Endotracheal tube is seen with tip lying at the lower level of the clavicles. Nasogastric tube is seen with tip lying in the area of the stomach. Impression: 1. Endotracheal tube and nasogastric tube are noted. 2. Questionably increased lung markings from prior study which could represent mild pulmonary vascular congestion if patient has any correlating symptoms. 3. Mild left basilar atelectasis is noted. Diagnostic code #3
== END 2020-03-15 01:18 ==
LOC: JD.ED 23:20
DX: J44.0 Chronic obstructive pulmonary disease with (acute) lower respiratory infection (principal); J18.9 Pneumonia, unspecified organism; J44.1 Chronic obstructive pulmonary disease with (acute) exacerbation; R09.2 Respiratory arrest; R09.02 Hypoxemia; E87.2 Acidosis; E78.00 Pure hypercholesterolemia, unspecified; I10 Essential (primary) hypertension; E66.9 Obesity, unspecified; Z99.81 Dependence on supplemental oxygen; Z20.822 Contact with and (suspected) exposure to COVID-19; Z79.899 Other long term (current) drug therapy
CPT/HCPCS: 36415; 36600; 43752; 51702; 71045; 80053; 81001; 82803; 83605; 83880; 84484; 85025; 86140; 87040; 87635; 93005; 96365; 96368; 99291; J0456; J0696; J2250; J3010; J7030; J7050; J7120; 93010; 99292; U0002

== ENCOUNTER 2020-03-26 00:55 | Emergency (ER) | payer BC ==
--- NOTE | 2020-03-26 01:29 | EDM.PDOC ---
ED HPI GENERAL MEDICAL PROBLEM - General Chief Complaint: Tube Replacement Stated Complaint: AMBULANCE Time Seen by Provider: 03/26/20 00:58 Source of Information: Reports: Patient, EMS History Limitations: Reports: No Limitations - History of Present Illness INITIAL COMMENTS - FREE TEXT/NARRATIVE: The patient presents by [facility] for dislodged trach tube. The patie nt said he just came home from [place] yesterday. He has a mass in his throat and he needed a trach. He said tonight when he was in bed he rolled over and the trach tube came almost all the way out. EMS was called and he was oxygenating good. It appeared the trach tube was still out some. EMS did not feel comfortable advancing the tube or changing it out. They brought him in for help. He has no pain with it and there is just some very mild bloody drainage coming out. Onset: Sudden Duration: Minutes: Severity: Moderate Improves with: Reports: None Worsens with: Reports: None Associated Symptoms: Reports: No Other Symptoms - Related Data Allergies Allergy/AdvReac Type Severity Reaction Status Date / Time No Known Allergies Allergy Verified 03/09/20 00:56 Home Meds: Home Meds Quinapril [Accupril] 10 mg PO DAILY 02/10/20 [History] amLODIPine [Norvasc] 5 mg PO DAILY 02/10/20 [History] atorvaSTATin [Lipitor] 10 mg PO BEDTIME 02/10/20 [History] predniSONE [Prednisone] 50 mg PO DAILY #7 tablet 02/11/20 [Rx] Azithromycin 250 mg PO DAILY #4 tablet 03/09/20 [Rx] Cefuroxime Axetil [Ceftin] 500 mg PO BID #12 tablet 03/09/20 [Rx] predniSONE 20 mg PO ASDIRECTED #20 tab 03/09/20 [Rx] Past Medical History HEENT History: Reports: Hard of Hearing, Impaired Vision Cardiovascular History: Reports: High Cholesterol, Hypertension Respiratory History: Reports: Bronchitis, Recurrent, COPD, Pneumonia, Recurrent, Sleep Apnea, SOB Gastrointestinal History: Reports: GERD Endocrine/Metabolic History: Reports: Obesity/BMI 30+ - Past Surgical History HEENT Surgical History: Reports: Other (See Below) Other HEENT Surgeries/Procedures: removed benign mass from neck in October 2019 Cardiovascular Surgical History: Reports: None Respiratory Surgical History: Reports: None GI Surgical History: Reports: None Endocrine Surgical History: Reports: None Social & Family History - Family History Cardiac: Reports: [place] Other Cardiac Family History: Father of [place] - Caffeine Use Caffeine Use: Reports: Coffee, Soda Other Caffeine Use: 2 cups a day ED ROS GENERAL - Review of Systems Review Of Systems: See Below Constitutional: Reports: No Symptoms HEENT: Reports: Other (trach tube dislodged) Respiratory: Reports: No Symptoms Cardiovascular: Reports: No Symptoms Endocrine: Reports: No Symptoms GI/Abdominal: Reports: No Symptoms : Reports: No Symptoms ED EXAM, GENERAL - Physical Exam Exam: See Below Exam Limited By: No Limitations General Appearance: Alert, No Apparent Distress Ears: Normal External Exam Nose: Normal Inspection Head: Atraumatic, Normocephalic Neck: Other (Trach tube is slightly dislodged with bloody drainage) Respiratory/Chest: No Respiratory Distress Course - Vital Signs Last Recorded V/S: Last Vital Signs Temp 97.1 F 03/26/20 00:57 Pulse 83 03/26/20 00:57 Resp 20 03/26/20 00:57 BP 141/73 H 03/26/20 00:57 Pulse Ox 89 L 03/26/20 00:57 - Re-Assessments/Exams Free Text/Narrative Re-Assessment/Exam: 03/26/20 01:29 I replaced the 6 tube with a 6 uncuffed tube from our stock. I will discharge him home. Departure - Departure Time of Disposition: 01:35 Disposition: Home, Self-Care 01 Condition: Good Clinical Impression: Tracheostomy complication Qualifiers: Tracheostomy complication: unspecified Qualified Code(s): J95.00 - Unspecified tracheostomy complication - Discharge Information *PRESCRIPTION DRUG MONITORING PROGRAM REVIEWED*: Not Applicable *COPY OF PRESCRIPTION DRUG MONITORING REPORT IN PATIENT JAZMIN: Not Applicable Referrals: PCP,None [Primary Care Provider] - Additional Instructions: Follow up with your doctor. Please return if you are worse. Sepsis Event Note (ED) - Evaluation Sepsis Screening Result: No Definite Risk - Focused Exam Vital Signs: Vital Signs Temp Pulse Resp BP Pulse Ox 03/26/20 00:57 97.1 F 83 20 141/73 H 89 L
== END 2020-03-26 01:49 | disposition home or self-care (01) ==
LOC: JD.ED 00:55
DX: Z43.0 Encounter for attention to tracheostomy (principal)
CPT/HCPCS: 99284

== ENCOUNTER 2020-03-26 10:00 | Emergency (ER) | payer BC ==
--- NOTE | 2020-03-26 10:54 | CR ---
Chest: Portable view of the chest was obtained. Comparison: Prior chest x-ray of 03/14/20. Areas of atelectasis are noted within both lung bases. Findings are improved from previous exam. Tracheostomy tube is noted. Lungs show no other acute parenchymal change. Heart size is normal. Slight tortuosity of the thoracic aorta is seen. Nasogastric tube is seen which courses off the inferior edge of the film within the stomach. Impression: 1. Slight areas of atelectasis within both lung bases. 2. Tracheostomy tube and nasogastric tube. 3. Nothing acute is otherwise seen. Diagnostic code #2
--- NOTE | 2020-03-26 11:31 | EDM.PDOC ---
ED HPI GENERAL MEDICAL PROBLEM - General Chief Complaint: Respiratory Problem Stated Complaint: SOB PT IS ON OXYGEN Time Seen by Provider: 03/26/20 10:50 Source of Information: Reports: Patient History Limitations: Reports: No Limitations, Other (Vital signs in the ED reveal a temp of 96.5, pulse of 102, respiratory rate 16, blood pressure 162/90, pulse ox 88% on 12 L of O2.) - History of Present Illness INITIAL COMMENTS - FREE TEXT/NARRATIVE: 59-year-old male with complaints of shortness of breath. Patient has a significant medical history recently was seen at the [facility] and discharged this last Monday which was only 3 days ago. Patient had a significant history of COPD and was in the emergency department on the sixth of this month which progressed to him needing to be intubated and then he was transferred to [facility]. The patient's reports he was then transferred onto the [facility] as a suspected he had a fungal infection in his throat. The [facility] they extubated him but were unable to reintubate him which resulted in a trach. They have done several biopsies but they have not given him a concrete diagnosis. He was discharged home this last Monday from the [facility], 3 days ago the tracheostomy and a feeding tube in his left naris. Patient's states she did not receive any discharge instructions other than to suction him as needed. Presents to the ER today with increased shortness of breath. Patient's states she did try to suction him this morning but did not get much of anything out. Patient was seen in the emergency department last evening with complaints that they may have pulled his trach tube out/or it had become dislodged. Trach tube was reinserted the patient stated that he is breathing easier and he was discharged home. - Related Data Allergies Allergy/AdvReac Type Severity Reaction Status Date / Time No Known Allergies Allergy Verified 03/26/20 10:11 Home Meds: Home Meds Quinapril [Accupril] 10 mg PO DAILY 02/10/20 [History] amLODIPine [Norvasc] 5 mg PO DAILY 02/10/20 [History] atorvaSTATin [Lipitor] 10 mg PO BEDTIME 02/10/20 [History] predniSONE [Prednisone] 50 mg PO DAILY #7 tablet 02/11/20 [Rx] Past Medical History HEENT History: Reports: Hard of Hearing, Impaired Vision Cardiovascular History: Reports: High Cholesterol, Hypertension Respiratory History: Reports: Bronchitis, Recurrent, COPD, Pneumonia, Recurrent, Sleep Apnea, SOB Gastrointestinal History: Reports: GERD Genitourinary History: Reports: None Musculoskeletal History: Reports: None Neurological History: Reports: None Psychiatric History: Reports: None Endocrine/Metabolic History: Reports: Obesity/BMI 30+ Hematologic History: Reports: None Immunologic History: Reports: None Oncologic (Cancer) History: Reports: Other (See Below) Other Oncologic History: mass in throat. Dermatologic History: Reports: None - Infectious Disease History Infectious Disease History: Reports: Chicken Pox - Past Surgical History HEENT Surgical History: Reports: Other (See Below) Other HEENT Surgeries/Procedures: removed benign mass from neck in October 2019 Cardiovascular Surgical History: Reports: None Respiratory Surgical History: Reports: Tracheostomy GI Surgical History: Reports: None Endocrine Surgical History: Reports: None Social & Family History - Family History Family Medical History: No Pertinent Family History Cardiac: Reports: [place] Other Cardiac Family History: Father of [place] - Tobacco Use Tobacco Use Status *Q: Current Some Day Tobacco User Years of Tobacco use: 30 Packs/Tins Daily: 2 - Caffeine Use Caffeine Use: Reports: Coffee Other Caffeine Use: 2 cups a day - Recreational Drug Use Recreational Drug Use: No ED ROS GENERAL - Review of Systems Review Of Systems: See Below Constitutional: Reports: No Symptoms. Denies: Fever, Chills, Diaphoresis HEENT: Reports: Other (tracheostomy) Respiratory: Reports: Shortness of Breath, Cough, Sputum. Denies: Wheezing, Pleuritic Chest Pain Cardiovascular: Reports: No Symptoms Endocrine: Reports: No Symptoms GI/Abdominal: Reports: No Symptoms. Denies: Constipation, Diarrhea, Nausea, Vomiting : Reports: No Symptoms Musculoskeletal: Reports: No Symptoms Skin: Reports: No Symptoms Neurological: Reports: No Symptoms Psychiatric: Reports: No Symptoms Hematologic/Lymphatic: Reports: No Symptoms Immunologic: Reports: No Symptoms ED EXAM, GENERAL - Physical Exam Exam: See Below Exam Limited By: No Limitations General Appearance: Alert, WD/WN, Mild Distress Eye Exam: Bilateral Eye: PERRL Ears: Hearing Grossly Normal Nose: Normal Inspection Throat/Mouth: Normal Inspection, Normal Lips, Normal Teeth. No: Normal Voice (whispers due to trach), No Airway Compromise (tracheostomy in place) Head: Atraumatic, Normocephalic Neck: Normal Inspection, Supple, Non-Tender, Full Range of Motion Respiratory/Chest: No Accessory Muscle Use, Chest Non-Tender, Rhonchi (Scattered rhonchi throughout), Wheezing (Tory wheeze noted on the left anterior). No: Lungs Clear, Normal Breath Sounds Cardiovascular: Normal Peripheral Pulses, Regular Rate, Rhythm, No Edema, No Murmur Peripheral Pulses: 2+: Radial (L), Radial (R) GI/Abdominal: Normal Bowel Sounds, Soft, Non-Tender, No Distention (Male) Exam: Deferred Rectal (Males) Exam: Deferred Back Exam: Normal Inspection, Full Range of Motion Extremities: Normal Inspection, Normal Range of Motion, Non-Tender, No Pedal Edema, Normal Capillary Refill Neurological: Alert, Oriented, Normal Cognition Psychiatric: Normal Affect, Normal Mood Skin Exam: Warm, Dry, Intact, Normal Color, No Rash Lymphatic: No Adenopathy #1 Interpretation EKG Date: 03/26/20 Time: 10:35 Rhythm: NSR Rate (Beats/Min): 95 Yeso: Normal P-Wave: Present QRS: Normal ST-T: Normal QT: Normal EKG Interpretation Comments: Per Dr. Arciniega interpretation: Normal sinus rhythm Course - Vital Signs Text/Narrative:: 59-year-old male with a history of tracheostomy presents to the ER with complaints of shortness of breath he also has a significant significant history of COPD. Upon my initial assessment standing orders had already given completed which included a chest x-ray. Patient's chest x-ray radiologist impression: 1. Slight areas of atelectasis within both lung bases. 2. Tracheostomy tube and nasogastric tube. 3. Nothing acute is otherwise seen. Suspect patient does have an expiratory wheeze noted in the left anterior. He also has scattered rhonchi noted throughout his lungs. I have ordered blood gases on the patient. Initial lab work has already been completed as well. And an EKG. Last Recorded V/S: Last Vital Signs Temp 96.5 F L 03/26/20 10:14 Pulse 102 H 03/26/20 10:14 Resp 16 03/26/20 10:14 BP 162/90 H 03/26/20 10:14 Pulse Ox 87 L 03/26/20 11:34 - Orders/Labs/Meds Orders: Active Orders 24 hr Category Date Time Status EKG 12 Lead [EKG Documentation Completion] [RC] STAT Care 03/26/20 10:11 Active Incentive Breathing [RT Incentive Spirometry] [RC] Care 03/26/20 11:41 Active ASDIRECTED RT Aerosol Therapy [RC] ASDIRECTED Care 03/26/20 11:34 Active CORONAVIRUS COVID-19 SHANNEN [MOLEC] Stat Lab 03/26/20 12:53 Ordered Labs: Laboratory Tests 03/26/20 03/26/20 03/26/20 Range/Units 10:20 10:20 10:20 WBC 8.45 (4.23-9.07) K/mm3 RBC 5.05 (4.63-6.08) M/mm3 Hgb 14.8 (13.7-17.5) gm/dl Hct 48.0 (40.1-51.0) % MCV 95.0 H D (79.0-92.2) fl MCH 29.3 (25.7-32.2) pg MCHC 30.8 L (32.2-35.5) g/dl RDW Std Deviation 46.6 H (35.1-43.9) fL Plt Count 319 D (163-337) K/mm3 MPV 10.3 (9.4-12.3) fl Neut % (Auto) 72.5 H (34.0-67.9) % Lymph % (Auto) 13.7 L (21.8-53.1) % Sabine % (Auto) 12.0 (5.3-12.2) % Eos % (Auto) 1.2 (0.8-7.0) Baso % (Auto) 0.2 (0.1-1.2) % Neut # (Auto) 6.13 H (1.78-5.38) K/mm3 Lymph # (Auto) 1.16 L (1.32-3.57) K/mm3 Sabine # (Auto) 1.01 H (0.30-0.82) K/mm3 Eos # (Auto) 0.10 (0.04-0.54) K/mm3 Baso # (Auto) 0.02 (0.01-0.08) K/mm3 Puncture Site ABG pH (7.35-7.45) ABG pCO2 (35.0-45.0) mmHg ABG pO2 (80.0-100.0) mmHg ABG HCO3 (22.0-26.0) meq/L ABG O2 Saturation (96.0-97.0) % ABG Base Excess (-2-2.0) Cameron Test A-a Gradient mmHg O2 Delivery Device Oxygen Flow Rate FiO2 (21.00-100.00) % Sodium 142 (136-145) mEq/L Potassium 3.8 (3.5-5.1) mEq/L Chloride 101 (98-107) mEq/L Carbon Dioxide 30 (21-32) mEq/L Anion Gap 14.8 (5-15) BUN 10 (7-18) mg/dL Creatinine 0.6 L (0.7-1.3) mg/dL Est Cr Clr Drug Dosing 154.13 mL/min Estimated GFR (MDRD) > 60 (>60) mL/min BUN/Creatinine Ratio 16.7 (14-18) Glucose 158 H (74-106) mg/dL Calcium 10.9 H D (8.5-10.1) mg/dL Total Bilirubin 0.6 (0.2-1.0) mg/dL AST 38 H (15-37) U/L ALT 54 (16-63) U/L Alkaline Phosphatase 149 H (46-116) U/L Troponin I < 0.017 (0.00-0.056) ng/mL C-Reactive Protein 8.7 H* (<1.0) mg/dL Total Protein 8.0 (6.4-8.2) g/dl Albumin 3.5 (3.4-5.0) g/dl Globulin 4.5 gm/dL Albumin/Globulin Ratio 0.8 L (1-2) 03/26/20 Range/Units 11:25 WBC (4.23-9.07) K/mm3 RBC (4.63-6.08) M/mm3 Hgb (13.7-17.5) gm/dl Hct (40.1-51.0) % MCV (79.0-92.2) fl MCH (25.7-32.2) pg MCHC (32.2-35.5) g/dl RDW Std Deviation (35.1-43.9) fL Plt Count (163-337) K/mm3 MPV (9.4-12.3) fl Neut % (Auto) (34.0-67.9) % Lymph % (Auto) (21.8-53.1) % Sabine % (Auto) (5.3-12.2) % Eos % (Auto) (0.8-7.0) Baso % (Auto) (0.1-1.2) % Neut # (Auto) (1.78-5.38) K/mm3 Lymph # (Auto) (1.32-3.57) K/mm3 Sabine # (Auto) (0.30-0.82) K/mm3 Eos # (Auto) (0.04-0.54) K/mm3 Baso # (Auto) (0.01-0.08) K/mm3 Puncture Site Lt radial ABG pH 7.38 (7.35-7.45) ABG pCO2 51.3 H (35.0-45.0) mmHg ABG pO2 55.0 L (80.0-100.0) mmHg ABG HCO3 29.8 H (22.0-26.0) meq/L ABG O2 Saturation 85.4 L (96.0-97.0) % ABG Base Excess 4.1 H (-2-2.0) Cameron Test Positive A-a Gradient 365 mmHg O2 Delivery Device Trach collar/mask Oxygen Flow Rate 12.0 FiO2 68.00 (21.00-100.00) % Sodium (136-145) mEq/L Potassium (3.5-5.1) mEq/L Chloride (98-107) mEq/L Carbon Dioxide (21-32) mEq/L Anion Gap (5-15) BUN (7-18) mg/dL Creatinine (0.7-1.3) mg/dL Est Cr Clr Drug Dosing mL/min Estimated GFR (MDRD) (>60) mL/min BUN/Creatinine Ratio (14-18) Glucose (74-106) mg/dL Calcium (8.5-10.1) mg/dL Total Bilirubin (0.2-1.0) mg/dL AST (15-37) U/L ALT (16-63) U/L Alkaline Phosphatase (46-116) U/L Troponin I (0.00-0.056) ng/mL C-Reactive Protein (<1.0) mg/dL Total Protein (6.4-8.2) g/dl Albumin (3.4-5.0) g/dl Globulin gm/dL Albumin/Globulin Ratio (1-2) Meds: Medications Discontinued Medications Generic Name Dose Route Start Last Admin Trade Name Jessi PRN Reason Stop Dose Admin Albuterol 2.5 mg 03/26/20 11:33 03/26/20 12:12 Proventil Neb Soln NEB 03/26/20 11:34 2.5 mg ONETIME ONE Administration - Re-Assessments/Exams Free Text/Narrative Re-Assessment/Exam: 03/26/20 11:41 Labs reveal a WBC of 8.45, hemoglobin 14.8, hematocrit 48.0, chemistry reveals a sodium of 142, potassium 3.8, carbon dioxide 30, anion gap 14.8 BUN, 10, creatinine 0.6, calcium 10.9, AST 38, ALT 54, alk phos 149, troponin less than 0.017, ABGs reveal a pH of 7.38, PCO2 51.3, PO2 55.0, HCO3 29.8, O2 saturation 85%, base excess 4.1 this is on 12 L of oxygen per trach collar I have ordered for the patient to receive an albuterol treatment and will evaluate after that. 03/26/20 11:42 I have also ordered an incentive spirometer on the patient. 03/26/20 13:19 RT care reports to me that they attempted to suction the patient's trach however they are meeting resistance and they are unable to suction. Patient's trach is fairly fresh and they do not feel comfortable replacing it. We do not have ENT available at this facility. I have phoned [facility] and spoke with Dr. Feliciano and he has accepted to see the patient in the ER in [place]. Patient will be transported by ambulance. Departure - Departure Time of Disposition: 13:22 Disposition: DC/Tfer to Acute Hospital 02 Condition: Fair Clinical Impression: Tracheostomy complication, unspecified Qualifiers: Tracheostomy complication: unspecified Qualified Code(s): J95.00 - Unspecified tracheostomy complication - Discharge Information Referrals: Matilda Mitchell NP [Primary Care Provider] - Forms: ED Department Discharge Sepsis Event Note (ED) - Evaluation Sepsis Screening Result: No Definite Risk - Focused Exam Vital Signs: Vital Signs Temp Pulse Resp BP Pulse Ox Pulse Ox 03/26/20 11:34 87 L 03/26/20 11:00 90 L 03/26/20 10:14 96.5 F L 102 H 16 162/90 H 88 L - My Orders Last 24 Hours: My Active Orders 03/26/20 10:11 EKG 12 Lead [EKG Documentation Completion] [RC] STAT 03/26/20 11:34 RT Aerosol Therapy [RC] ASDIRECTED 03/26/20 11:41 Incentive Breathing [RT Incentive Spirometry] [RC] ASDIRECTED 03/26/20 12:53 CORONAVIRUS COVID-19 SHANNEN [MOLEC] Stat - Assessment/Plan Last 24 Hours: My Active Orders 03/26/20 10:11 EKG 12 Lead [EKG Documentation Completion] [RC] STAT 03/26/20 11:34 RT Aerosol Therapy [RC] ASDIRECTED 03/26/20 11:41 Incentive Breathing [RT Incentive Spirometry] [RC] ASDIRECTED 03/26/20 12:53 CORONAVIRUS COVID-19 SHANNEN [MOLEC] Stat
[2020-03-26] MEDS ORDERED: Albuterol 0.083% 2.5 MG/3 ML Neb Soln NEB ONE (11:33)
== END 2020-03-26 13:50 ==
LOC: JD.ED 10:00
DX: R06.02 Shortness of breath (principal); E78.00 Pure hypercholesterolemia, unspecified; I10 Essential (primary) hypertension; J44.9 Chronic obstructive pulmonary disease, unspecified; E66.9 Obesity, unspecified; Z68.29 Body mass index [BMI] 29.0-29.9, adult; Z20.822 Contact with and (suspected) exposure to COVID-19; Z79.899 Other long term (current) drug therapy; Z72.0 Tobacco use
CPT/HCPCS: 36415; 36600; 71045; 71045-26; 80053; 82803; 84484; 85025; 86140; 93005; 94640; 99284; 99285-25; U0002

== ENCOUNTER 2021-08-15 08:10 | Emergency (ER) | payer BC, SELFPAY | END 2021-08-15 08:45 | disposition home or self-care (01) | LOC: JD.ED 08:10 | DX: Z45.2 Encounter for adjustment and management of vascular access device (principal); J44.9 Chronic obstructive pulmonary disease, unspecified; E78.00 Pure hypercholesterolemia, unspecified; I10 Essential (primary) hypertension; K21.9 Gastro-esophageal reflux disease without esophagitis; E66.9 Obesity, unspecified; Z68.28 Body mass index [BMI] 28.0-28.9, adult; Z79.899 Other long term (current) drug therapy | CPT/HCPCS: 99283 ==

== ENCOUNTER 2022-01-31 16:32 | Emergency (ER) | payer BC ==
[2022-01-31] MEDS ORDERED: Lactated Ringers 1,000 ML IV SCH (16:45)
[2022-01-31] MEDS ORDERED: Tranexamic Acid 1,000 MG/10 ML Vial ONE (17:16)
[2022-01-31] MEDS ORDERED: Tranexamic Acid 1,000 MG/10 ML Vial IV ONE (17:20)
[2022-01-31 17:26] LABS: ESTIMATED GFR 116 mL/min (>60)
[2022-01-31] MEDS ORDERED: fentaNYL 100 MCG/2 ML SDV IVPUSH ONE (17:52)
[2022-01-31] MEDS ORDERED: Midazolam 1 MG/ML 5 ML SDV ONE (18:00)
[2022-01-31] MEDS ORDERED: Etomidate 2 MG/ML 20 ML SDV IVPUSH ONE (18:00)
[2022-01-31] MEDS ORDERED: Succinylcholine 200 MG/10 ML MDV ONE (18:00)
[2022-01-31] MEDS ORDERED: propofoL 100 ML ONE ×2 (18:18→20:03)
== END 2022-02-01 21:00 ==
LOC: JD.ED 16:32
DX: J95.831 Postprocedural hemorrhage of a respiratory system organ or structure following other procedure (principal); E78.00 Pure hypercholesterolemia, unspecified; J44.9 Chronic obstructive pulmonary disease, unspecified; I10 Essential (primary) hypertension; E66.9 Obesity, unspecified; Z68.1 Body mass index [BMI] 19.9 or less, adult; Z79.899 Other long term (current) drug therapy
CPT/HCPCS: 30903; 31500; 36415; 36430; 71045; 71045-26; 80053; 81003; 85025; 85610; 85730; 86850; 86900; 86901; 86922; 96374; 99291-25; 99292; J0330; J2250; J3490; P9016

== ENCOUNTER 2022-02-20 21:40 | Emergency (ER) | payer BC ==
[2022-02-20] MEDS ORDERED: cefTRIAXone 1 GM Vial IM ONE (22:33)
[2022-02-20] MEDS ORDERED: Lidocaine 1% 5 ML VIAL INJECT ONE (23:14)
[2022-02-20] MEDS ORDERED: Lidocaine 1% 10 ML MDV ONE (23:17)
[2022-02-20] MEDS ORDERED: Lidocaine 1% 10 ML MDV INJECT ONE (23:18)
== END 2022-02-20 23:48 | disposition home or self-care (01) ==
LOC: JD.ED 21:40
DX: R04.0 Epistaxis (principal); I10 Essential (primary) hypertension; E78.00 Pure hypercholesterolemia, unspecified; J44.9 Chronic obstructive pulmonary disease, unspecified; E66.9 Obesity, unspecified; Z79.899 Other long term (current) drug therapy
CPT/HCPCS: 30903; 96372; 99283; A9270; J0696; 30901; 99282; J3490

== ENCOUNTER 2022-02-25 01:58 | Emergency (ER) | payer BC ==
[2022-02-25] MEDS ORDERED: Phenylephrine 0.5% Nasal Spray 15 ML Bot ONE (04:35)
[2022-02-25] MEDS ORDERED: Sodium Chloride 0.9% 1,000 ML IV ONE (05:01)
[2022-02-25] MEDS ORDERED: Sodium Chloride 0.9% 10 ML Syringe FLUSH PRN (05:05)
[2022-02-25 05:28] LABS: ESTIMATED GFR 116 mL/min (>60)
[2022-02-25] MEDS ORDERED: Morphine 4 MG/ML Syringe IVPUSH ONE (07:44)
[2022-02-25] MEDS ORDERED: LORazepam 2 MG/ML SDV IVPUSH ONE (09:56)
[2022-02-25] MEDS ORDERED: Sodium Chloride 0.9% Inhalation Soln 3 ML Neb INH PRN ×2 (11:29→12:55)
[2022-02-25] MEDS ORDERED: Racepinephrine 2.25% 0.5 ML Neb Soln NEB ONE ×2 (11:29→12:55)
[2022-02-25] MEDS ORDERED: Aminocaproic Acid 1 GM in Sodium Chloride 0.9% 250 ML IV ONE (11:32)
[2022-02-25] MEDS ORDERED: Tranexamic Acid 1,000 MG/10 ML Vial IV ONE (11:59)
[2022-02-25] MEDS ORDERED: Sodium Chloride 0.9% 1,000 ML IV SCH (13:00)
== END 2022-02-25 14:10 ==
LOC: JD.ED 01:58
DX: R04.1 Hemorrhage from throat (principal); D14.1 Benign neoplasm of larynx; Z87.891 Personal history of nicotine dependence
CPT/HCPCS: 36415; 80053; 85025; 85730; 86850; 86900; 86901; 94640; 96361; 96374; 96375; 99285; A9270; J2060; J2270; J3490; J7030